=== PATIENT | female | born 1990 | race African-American/Black ===

== ENCOUNTER 2018-10-28 16:05 | Emergency (ER) | payer OTHER, SELFPAY ==
--- NOTE | 2018-10-28 16:44 | EDPHYS ---
Physician Documentation [facility] Name: Isis Mendez Age: 28 yrs Sex: Female : 1990 Arrival Date: 10/28/2018 Time: 16:08 Bed 19 Private MD: ED Physician Duc Abdul HPI: 10/28 16:36 This 28 yrs old Black Female presents to ER via Ambulatory with complaints of Foreign pm1 Body In Left Ear. 16:36 The patient presents with foreign body in left ear. The complaints affect the left ear. pm1 Onset: The symptoms/episode began/occurred 1 month(s) ago. Modifying factors: The symptoms are alleviated by nothing, the symptoms are aggravated by nothing. Associated signs and symptoms: The patient has no apparent associated signs or symptoms, Pertinent negatives: fever, tinnitus, vertigo. Severity of symptoms: in the emergency department the symptoms are worse. The patient has not experienced similar symptoms in the past. The patient has not recently seen a physician. Patient with backing of earring in her ear canal. Has been attempting to remove with tweezers by her boyfriend and afraid that hey just pushed it in deeper. 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 - Social history:: Smoking status: Patient/guardian denies using tobacco. - Ebola Screening: : No symptoms or risks identified at this time. ROS: 16:36 Constitutional: Negative for fever, chills, and weight loss, Eyes: Negative for injury, pm1 pain, redness, and discharge. 16:36 Neck: Negative for injury, pain, and swelling, Cardiovascular: Negative for chest pain, palpitations, and edema, Respiratory: Negative for shortness of breath, cough, wheezing, and pleuritic chest pain, Abdomen/GI: Negative for abdominal pain, nausea, vomiting, diarrhea, and constipation, Back: Negative for injury and pain, : Negative for injury, bleeding, discharge, and swelling, MS/Extremity: Negative for injury and deformity, Skin: Negative for injury, rash, and discoloration, Neuro: Negative for headache, weakness, numbness, tingling, and seizure. 16:36 ENT: Positive for ear pain, foreign body sensation, Negative for drainage from ear(s), hearing loss. Exam: 16:36 Constitutional: This is a well developed, well nourished patient who is awake, alert, pm1 and in no acute distress. Head/Face: Normocephalic, atraumatic. Eyes: Pupils equal round and reactive to light, extra-ocular motions intact. Lids and lashes normal. Conjunctiva and sclera are non-icteric and not injected. Cornea within normal limits. Periorbital areas with no swelling, redness, or edema. Neck: Trachea midline, no thyromegaly or masses palpated, and no cervical lymphadenopathy. Supple, full range of motion without nuchal rigidity, or vertebral point tenderness. No Meningismus. Chest/axilla: Normal chest wall appearance and motion. Nontender with no deformity. No lesions are appreciated. 16:36 Cardiovascular: Regular rate and rhythm with a normal S1 and S2. No gallops, murmurs, or rubs. Normal PMI, no JVD. No pulse deficits. Respiratory: Lungs have equal breath sounds bilaterally, clear to auscultation and percussion. No rales, rhonchi or wheezes noted. No increased work of breathing, no retractions or nasal flaring. Skin: Warm, dry with normal turgor. Normal color with no rashes, no lesions, and no evidence of cellulitis. MS/ Extremity: Pulses equal, no cyanosis. Neurovascular intact. Full, normal range of motion. 16:36 ENT: External ear(s): are unremarkable, Ear canal(s): foreign body, a piece of jewelry, silver colored backing of ear in left ear canal, in the left external ear canal, TM's: unable to visualize left tympanic membrane due to foreign body, Examination of the other ear shows no obvious abnormality. 16:36 Neuro: Orientation: is normal, Motor: is normal, moves all fours. Vital Signs: 16:11 BP 117 / 88; Pulse 98; Resp 16; Temp 97.1; Pulse Ox 100% on R/A; Weight 59.87 kg; hb Height 5 ft. 6 in. (167.64 cm); Pain 9/10; 16:11 Body Mass Index 21.31 (59.87 kg, 167.64 cm) MDM: 16:16 Patient medically screened. pm1 16:36 Data reviewed: vital signs. Data interpreted: Pulse oximetry: on room air is 100 %. pm1 Interpretation: normal. Counseling: I had a detailed discussion with the patient and/or guardian regarding: the historical points, exam findings, and any diagnostic results supporting the discharge/admit diagnosis. 16:41 ED course: Attempted to use alligator forceps to remove foreign body. Patient will not pm1 stay still for attempt to remove. do not want to run the risk of causing injury and rupturing tympanic membrane. Referred patient to ENT for removal. Administered Medications: No medications were administered Disposition: 10/29 17:07 Co-signature as Attending Physician, Duc Abdul MD I agree with the assessment and plan of care. Disposition: 10/28/18 16:43 Discharged to Home. Impression: Foreign body in left ear. - Condition is Stable. - Discharge Instructions: Ear Foreign Body. - Medication Reconciliation Form, Thank You Letter, Antibiotic Education, Prescription Opioid Use form. - Follow up: Emergency Department; When: As needed; Reason: Worsening of condition. Follow up: Maggy Marquis MD; When: 2 - 3 days; Reason: Recheck today's complaints, Continuance of care, Re-evaluation by your physician. - Problem is new. - Symptoms have improved. Signatures: Ana Maria Valles RN RN Kang Powers NP CUSTOMER SUCCESS ASSOCIATE pm1 Destiney Beckford RN RN hb Starr, Gregory, MD MD Corrections: (The following items were deleted from the chart) 10/28 16:13 16:13 Splint - Finger ordered. pm1 pm1 17:23 16:43 10/28/2018 16:43 Discharged to Home. Impression: Foreign body in left ear. aj Condition is Stable. Forms are Medication Reconciliation Form, Thank You Letter, Antibiotic Education, Prescription Opioid Use. Follow up: Emergency Department; When: As needed; Reason: Worsening of condition. Follow up: Maggy Marquis; When: 2 - 3 days; Reason: Recheck today's complaints, Continuance of care, Re-evaluation by your physician. Problem is new. Symptoms have improved. pm1
--- NOTE | 2018-10-28 16:44 | ER ---
Nurse's Notes [facility] Name: Isis Mendez Age: 28 yrs Sex: Female : 1990 Arrival Date: 10/28/2018 Time: 16:08 Bed 19 Private MD: Diagnosis: Foreign body in left ear Presentation: 10/28 16:10 Presenting complaint: Back of earring stuck in left ear canal x 1 month. Transition of care: patient was not received from another setting of care. Onset of symptoms is unknown. Risk Assessment: Do you want to hurt yourself or someone else? Patient reports no desire to harm self or others. Initial Sepsis Screen: Does the patient meet any 2 criteria? No. Patient's initial sepsis screen is negative. Does the patient have a suspected source of infection? No. Patient's initial sepsis screen is negative. Care prior to arrival: None. 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 - Social history:: Smoking status: Patient/guardian denies using tobacco. - Ebola Screening: : No symptoms or risks identified at this time. Screenin:12 Abuse screen: Denies threats or abuse. Denies injuries from another. Nutritional hb screening: No deficits noted. Tuberculosis screening: No symptoms or risk factors identified. Fall Risk None identified. Assessment: 17:21 General: Appears in no apparent distress. uncomfortable, Behavior is calm, cooperative, aj appropriate for age. Pain: Complains of pain in left ear. Neuro: Level of Consciousness is awake, alert, obeys commands, Oriented to person, place, time, situation. Respiratory: Airway is patent Respiratory effort is even, unlabored, Respiratory pattern is regular, symmetrical. EENT: Reports pain in left ear. Derm: Skin is intact, is healthy with good turgor, Skin is pink, warm \T\ dry. normal. Vital Signs: 16:11 BP 117 / 88; Pulse 98; Resp 16; Temp 97.1; Pulse Ox 100% on R/A; Weight 59.87 kg; hb Height 5 ft. 6 in. (167.64 cm); Pain 9/10; 16:11 Body Mass Index 21.31 (59.87 kg, 167.64 cm) hb ED Course: 16:08 Patient arrived in ED. mr 16:11 Triage completed. hb 16:11 Arm band placed on right wrist. hb 16:12 Kang Powers NP is PHCP. pm1 16:12 Duc Abdul MD is Attending Physician. pm1 16:43 Maggy Marquis MD is Referral Physician. pm1 17:21 Ana Maria Valles, RN is Primary Nurse. aj 17:21 Patient has correct armband on for positive identification. aj 17:21 No provider procedures requiring assistance completed. Patient did not have IV access aj during this emergency room visit. Administered Medications: No medications were administered Outcome: 16:43 Discharge ordered by MD. pm1 17:21 Discharged to home ambulatory. aj 17:21 Condition: good 17:21 Discharge instructions given to patient, Instructed on discharge instructions, follow up and referral plans. medication usage, Demonstrated understanding of instructions, follow-up care, medications. 17:23 Patient left the ED. aj Signatures: Ana Maria Valles, RN Ramona Luna mr Kang Powers NP CURRICULUM AND ASSESSMENT COORDINATOR pm1 Destiney Beckford RN RN
== END 2018-10-28 17:23 | disposition home or self-care (01) ==
LOC: ER 16:05
DX: T16.2XXA Foreign body in left ear, initial encounter (principal); I10 Essential (primary) hypertension
CPT/HCPCS: 99281

== ENCOUNTER 2020-01-22 11:47 | Emergency (ER) | payer SELFPAY ==
--- NOTE | 2020-01-22 12:26 | EDPHYS ---
Physician Documentation [facility] Name: Isis Mendez Age: 29 yrs Sex: Female : 1990 Arrival Date: 01/22/2020 Time: 11:51 Bed 17 Private MD: ED Physician Tobin Azevedo HPI: 01/21 12:17 This 29 yrs old Black Female presents to ER via EMS with complaints of Chest Pain. jmm 12:17 The patient or guardian reports chest pain that is located primarily in the substernal [facility] area. The pain does not radiate. The chest pain is described as aching. Duration: The patient or guardian reports multiple episodes. Modifying factors: The symptoms are alleviated by nothing. the symptoms are aggravated by nothing. This is a 29 year old female with a history of htn that presents to the ED with complaints of chest pain beginning approx 10 days ago. Patient states she was tested for COVID - 19 and advised to self quarantine until receiving results. . 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 - Social history:: Smoking status: Patient reports the use of cigarette tobacco products, smokes one pack cigarettes per day. ROS: 12:17 Constitutional: Negative for fever, chills, and weight loss. jmm 12:17 Cardiovascular: Positive for chest pain. 12:17 Respiratory: Positive for cough. 12:17 All other systems are negative. Exam: 12:17 Constitutional: This is a well developed, well nourished patient who is awake, alert, jmm and in no acute distress. Head/Face: atraumatic. Eyes: EOMI, no conjunctival erythema appreciated ENT: Moist Mucus Membranes Neck: Trachea midline, Supple Chest/axilla: Normal chest wall appearance and motion. Cardiovascular: Regular rate and rhythm. No edema appreciated Respiratory: Normal respirations, no respiratory distress appreciated Abdomen/GI: Non distended, soft Back: Normal ROM Skin: General appearance color normal MS/ Extremity: Moves all extremities, no obvious deformities appreciated, no edema noted to the lower extremities Neuro: Awake and alert, normal gait Psych: Behavior is normal, Mood is normal, Patient is cooperative and pleasant Vital Signs: 11:41 BP 109 / 91; Pulse 83; Resp 16; Temp 98.2; Pulse Ox 100% ; Weight 60.78 kg; Height 5 rb1 ft. 6 in. (167.64 cm); Pain 8/10; 11:41 Body Mass Index 21.63 (60.78 kg, 167.64 cm) rb1 MDM: 11:53 Patient medically screened. [facility] 14:24 Refusal of service: The patient/guardian displays adequate decision making capability [facility] and despite a detailed discussion of alternatives, benefits, risks, and consequences refuses: all lab tests. 01/21 12:01 Order name: Cardiac monitoring; Complete Time: 12: [facility] 01/21 12: Order name: O2 Per Protocol; Complete Time: 12: [facility] 01/21 12:01 Order name: O2 Sat Monitoring; Complete Time: 12: [facility] Administered Medications: No medications were administered Disposition: 01/22 06:04 Co-signature as Attending Physician, Tobin Azevedo MD I agree with the assessment and [facility] plan of care. Disposition: 01/22/20 12:25 Patient has left against medical advice. - Patients states they are going to Home. - Condition is Stable. Signatures: Dispatcher [employer] Tobin Holguin MD MD cha Mickail, Joel, PA PA [facility] Lydia Blandon, RN RN rb1 Corrections: (The following items were deleted from the chart) 01/21 12: 12:01 IV Saline Lock ordered. [facility] rb1 12:01 Labs collected and sent ordered. [facility] rb1 : 12:01 EKG - Nurse/Tech ordered. [facility] rb1
--- NOTE | 2020-01-22 12:26 | ER ---
Nurse's Notes [facility] Name: Isis Mendez Age: 29 yrs Sex: Female : 1990 Arrival Date: 01/22/2020 Time: 11:51 Bed 17 Private MD: Diagnosis: Presentation: 01/21 11:41 Chief complaint: EMS states: Pt. was stopped by [facility] for a traffic violation rb1 and she told them that she had chest pain and COVID. Pt. is A \\T\\ O x 4, vital signs are stable and the 12-Lead shows SR. Family reported to EMS that the pt. is not positive for COVID. 11:41 Coronavirus screen: Pt. reports that she was tested for COVID and was positive, but rb1 family reported that she was not positive per EMS report. Ebola Screen: Patient denies travel to an Ebola-affected area in the 21 days before illness onset. Initial Sepsis Screen: Does the patient meet any 2 criteria? No. Patient's initial sepsis screen is negative. Does the patient have a suspected source of infection? No. Patient's initial sepsis screen is negative. Risk Assessment: Do you want to hurt yourself or someone else? Patient reports no desire to harm self or others. Onset of symptoms was January 22, 2020. 11:41 Method Of Arrival: EMS: [facility] rb1 11:41 Acuity: LUCAS 3 rb1 Triage Assessment: 11:41 General: Appears in no apparent distress. comfortable, Behavior is calm, cooperative, rb1 Denies fever. Pain: Complains of pain in mid-sternal area Pain currently is 8 out of 10 on a pain scale. Neuro: Level of Consciousness is awake, alert, obeys commands, Oriented to person, place, time, situation. Cardiovascular: Capillary refill < 3 seconds. Respiratory: Reports shortness of breath Airway is patent Respiratory effort is even, unlabored, Respiratory pattern is regular, symmetrical, Denies cough. GI: No signs and/or symptoms were reported involving the gastrointestinal system. : No signs and/or symptoms were reported regarding the genitourinary system. Derm: Skin is dry, Skin is normal, Skin temperature is warm. 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 - Social history:: Smoking status: Patient reports the use of cigarette tobacco products, smokes one pack cigarettes per day. Screenin:41 Abuse screen: Denies threats or abuse. Nutritional screening: No deficits noted. rb1 Tuberculosis screening: No symptoms or risk factors identified. Fall Risk None identified. Assessment: 11:41 General: See triage assessment. rb1 12:00 Reassessment: Pt became upset because Jayden ROSARIO was sitting at the bedside. She rb1 was raising her voice and swearing at the officer, the officer remained calm and explained why he had to be there, but the pt. continued to tell the officer that she didn't want him at the bedside. 12:15 Reassessment: Pt. is refusing care and does not want to see the doctor. Pt stated, "I rb1 don't want to be seen, I'm ready to go to the long term." Provider notified. Received verbal order to have the pt. fill out an AMA form. Vital Signs: 11:41 BP 109 / 91; Pulse 83; Resp 16; Temp 98.2; Pulse Ox 100% ; Weight 60.78 kg; Height 5 rb1 ft. 6 in. (167.64 cm); Pain 8/10; 11:41 Body Mass Index 21.63 (60.78 kg, 167.64 cm) rb1 ED Course: 11:41 Arm band placed on right wrist. rb1 11:41 Patient has correct armband on for positive identification. Bed in low position. Call rb1 light in reach. Side rails up X 1. classroom monitor on. Pulse ox on. NIBP on. Warm blanket given. 11:41 Patient maintains SpO2 saturation greater than 95% on room air. rb1 11:51 Patient arrived in ED. rb1 11:53 Ovidio Aldana PA is PHCP. [facility] 11:53 Tobin Azevedo MD is Attending Physician. [facility] 11:58 Triage completed. rb1 12:20 Lydia Blandon, RN is Primary Nurse. rb1 12:25 No provider procedures requiring assistance completed. Patient did not have IV access rb1 during this emergency room visit. Administered Medications: No medications were administered Outcome: 12:25 Patient left the ED. rb1 12: AMA AMA form signed rb1 : Condition: stable Signatures: Ovidio Aldana PA PA jmm Barber, Rebecca RN RN rb1 Corrections: (The following items were deleted from the chart) 12: 12:15 Reassessment: Pt. is refusing care and does not want to see the doctor. Provider rb1 notified. Received verbal order to have the pt. fill out an AMA form. rb1
== END 2020-01-22 12:25 | disposition left against medical advice (07) ==
LOC: ER 11:47
DX: R05 Cough (principal); I10 Essential (primary) hypertension; F17.210 Nicotine dependence, cigarettes, uncomplicated
CPT/HCPCS: 99284

== ENCOUNTER 2020-01-22 17:24 | Emergency (ER) | payer SELFPAY ==
--- NOTE | 2020-01-22 17:56 | EDPHYS ---
Physician Documentation [facility] Name: Isis Mendez Age: 29 yrs Sex: Female : 1990 Arrival Date: 01/22/2020 Time: 17:30 Bed 14 Private MD: ED Physician Tobin Azevedo HPI: 01/21 17:40 This 29 yrs old Black Female presents to ER via EMS with complaints of Suicidal cp Ideation. 17:40 The patient presents to the emergency department with a history of a suicide gesture, cp took jump suit and placed around neck. Patient denies suicidal or homicidal ideations when questioned and reports she wants to go home to and 4 children. 17:40 Past psychiatric history: Prior diagnosis: no previous psychiatric diagnosis known, cp Psychiatric medications include: none. 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 - Social history:: Smoking status: Patient reports the use of cigarette tobacco products, smokes one pack cigarettes per day. ROS: 17:46 Constitutional: Negative for body aches, fever, poor PO intake. cp 17:46 Cardiovascular: Negative for chest pain. 17:46 Respiratory: Negative for cough, shortness of breath, wheezing. 17:46 Abdomen/GI: Negative for abdominal pain, nausea, vomiting, and diarrhea. 17:46 Neuro: Negative for altered mental status, headache, weakness. 17:46 Psych: Negative for auditory hallucinations, visual hallucinations, homicidal ideation, suicidal ideation. 17:46 All other systems are negative. Exam: 17:47 Head/Face: Normocephalic, atraumatic. cp 17:47 Constitutional: The patient appears in no acute distress, alert, awake, non-toxic, well developed, well nourished. 17:47 Eyes: Periorbital structures: appear normal, Conjunctiva: normal, no exudate, no injection, Lids and lashes: appear normal, bilaterally. 17:47 ENT: External ear(s): are unremarkable, Nose: is normal, Posterior pharynx: Airway: no evidence of obstruction, patent. 17:47 Chest/axilla: Inspection: normal, Palpation: is normal, no crepitus, no tenderness. 17:47 Cardiovascular: Rate: normal, Rhythm: regular. 17:47 Respiratory: the patient does not display signs of respiratory distress, Respirations: normal, no use of accessory muscles, no retractions, labored breathing, is not present, Breath sounds: are clear throughout, no decreased breath sounds, no stridor, no wheezing. 17:47 Abdomen/GI: Exam negative for discomfort, distension, guarding, Inspection: abdomen appears normal. 17:47 Neuro: Orientation: to person, place \T\ time. Mentation: is normal, Motor: moves all fours, strength is normal. 17:47 Psych: Behavior/mood is cooperative, Affect is calm, Patient has no thoughts/intents to harm self or others. Judgement / Insight is normal. Delusions/hallucinations are not present. Vital Signs: 17:34 BP 122 / 87; Pulse 79; Resp 18 S; Temp 97(TE); Pulse Ox 100% on R/A; Weight 60.78 kg ca1 (R); Height 5 ft. 6 in. (167.64 cm) (R); Pain 0/10; 17:34 Body Mass Index 21.63 (60.78 kg, 167.64 cm) ca1 MDM: 17:36 Patient medically screened. [facility] 17:55 Data reviewed: vital signs, nurses notes, I have discussed the patient's cp presentation/case with the attending Emergency Department Physician; and as a result, I will discharge patient. 17:55 Differential diagnosis: drug withdrawal. acute psychotic break, depression, psychosis cp secondary to non-compliance. Counseling: I had a detailed discussion with the patient and/or guardian regarding: the historical points, exam findings, and any diagnostic results supporting the discharge/admit diagnosis, to return to the emergency department if symptoms worsen or persist or if there are any questions or concerns that arise at home. Administered Medications: No medications were administered Disposition: 18:00 Chart complete. cp 01/22 06:07 Co-signature as Attending Physician, Tobin Azevedo MD I agree with the assessment and [facility] plan of care. Disposition: 01/22/20 17:55 Discharged to Home. Impression: Encounter for examination and observation for other specified reasons - law enforcement. - Condition is Stable. - Medication Reconciliation Form, Thank You Letter, Antibiotic Education, Prescription Opioid Use form. - Follow up: Private Physician; When: As needed; Reason: Worsening of condition. - Problem is new. - Symptoms have improved. Signatures: Tobin Azevedo MD MD cha Page, Corey, PA PA cp Ted, Radha, RN RN ca1 Corrections: (The following items were deleted from the chart) 01/21 18:07 17:55 01/22/2020 17:55 Discharged to Home. Impression: Encounter for examination and ca1 observation for other specified reasons - law enforcement. Condition is Stable. Forms are Medication Reconciliation Form, Thank You Letter, Antibiotic Education, Prescription Opioid Use. Follow up: Private Physician; When: As needed; Reason: Worsening of condition. Problem is new. Symptoms have improved. cp
--- NOTE | 2020-01-22 17:56 | ER ---
Nurse's Notes [facility] Name: Isis Mendez Age: 29 yrs Sex: Female : 1990 Arrival Date: 01/22/2020 Time: 17:30 Bed 14 Private MD: Diagnosis: Encounter for examination and observation for other specified reasons-law enforcement Presentation: 01/21 17:34 Chief complaint: EMS states: Attempted to strangle herself with her jumpsuit. Denies ca1 trying to hurt herself or others. No c/o of pains. VS WNL. Pt states, " I was just trying to get their attention. They took it seriously. I don't want to kill or hurt myself or others". Coronavirus screen: Client denies travel out of the [place] in the last 14 days. At this time, the client does not indicate any symptoms associated with coronavirus-19. Ebola Screen: Patient negative for fever greater than or equal to 101.5 degrees Fahrenheit, and additional compatible Ebola Virus Disease symptoms Patient denies exposure to infectious person. Patient denies travel to an Ebola-affected area in the 21 days before illness onset. No symptoms or risks identified at this time. Initial Sepsis Screen: Does the patient meet any 2 criteria? No. Patient's initial sepsis screen is negative. Does the patient have a suspected source of infection? No. Patient's initial sepsis screen is negative. Risk Assessment: Do you want to hurt yourself or someone else? Patient reports no desire to harm self or others. Onset of symptoms was January 22, 2020. 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 - Social history:: Smoking status: Patient reports the use of cigarette tobacco products, smokes one pack cigarettes per day. Screenin:40 Abuse screen: Denies threats or abuse. Denies injuries from another. Nutritional ca1 screening: No deficits noted. Tuberculosis screening: No symptoms or risk factors identified. Fall Risk IV access (20 points). Assessment: 17:40 General: Appears in no apparent distress. comfortable, Behavior is calm, cooperative, ca1 appropriate for age. Pain: Denies pain. Neuro: Level of Consciousness is awake, alert, obeys commands, Oriented to person, place, time, situation. Cardiovascular: Heart tones S1 S2 present Capillary refill < 3 seconds Patient's skin is warm and dry. Respiratory: Airway is patent Respiratory effort is even, unlabored, Respiratory pattern is regular, symmetrical, Breath sounds are clear bilaterally. GI: Abdomen is flat, non-distended, Bowel sounds present X 4 quads. Abd is soft and non tender X 4 quads. : No signs and/or symptoms were reported regarding the genitourinary system. EENT: No signs and/or symptoms were reported regarding the EENT system. Derm: Skin is intact, is healthy with good turgor, Skin is pink, warm \\T\\ dry. Musculoskeletal: Circulation, motion, and sensation intact. Capillary refill < 3 seconds. 17:50 Reassessment: pt states that she was only trying to get out of senior living and that's why she iw was acting out. Psych: 17:43 Subjective: Patient's mood is irritable, Delusions are denied, Hallucinations are ca1 denied Having thoughts of denied thoughts of suicide and homicide. Objective: Patient is defensive, Speech is normal, Affect is appropriate. Interventions: Removed personal items and placed in bag. Patient placed in hospital gown. Searched person for dangerous items. Urine collected and sent for urine drug test. Belonging list filled out. Suicide Risk Assessment: Sad Person Scale: Sex of patient: Female: Score 0 points. Age of patient: Score 1 point if patient 15-34. Depression: Score 0 point if signs of depression are not present. Previous Attempt: Score 0 point if patient has not previously attempted suicide. Substance Abuse: Score 0 point if patient does not abuse alcohol or drugs. Rational Thinking: Score 0 point if patient has rational thinking. Social Support: Score 0 if social support is present/available. Organized Plan: Score 0 if patient did not have an organized plan in place. Relationship: Score 1 point if patient is , , , or for a single male Chronic Sickness: Score 0 point if patient does not have a chronic illness, debilitating, or severe disorder. TOTAL POINTS: If total points are 0-2, proposed clinical action is to send home with follow-up. Safety Checks: Personal items have been removed. Pt has been placed in a hallway bed/chair. No visitors are present at this time. Pt denies substance abuse. 18:07 Commitment: none. ca1 Vital Signs: 17:34 BP 122 / 87; Pulse 79; Resp 18 S; Temp 97(TE); Pulse Ox 100% on R/A; Weight 60.78 kg ca1 (R); Height 5 ft. 6 in. (167.64 cm) (R); Pain 0/10; 17:34 Body Mass Index 21.63 (60.78 kg, 167.64 cm) ca1 ED Course: 17:30 Patient arrived in ED. iw 17:32 Tobin Coto PA is PHCP. cp 17:32 Tobin Azevedo MD is Attending Physician. cp 17:34 Radha Jean RN is Primary Nurse. ca1 17:39 Triage completed. ca1 17:39 Arm band placed on right wrist. ca1 17:40 Patient has correct armband on for positive identification. Placed in gown. Bed in low ca1 position. Security at bedside. sitter at bedside. manager monitoring on. Pulse ox on. NIBP on. Warm blanket given. 18:07 No provider procedures requiring assistance completed. Patient did not have IV access ca1 during this emergency room visit. Administered Medications: No medications were administered Outcome: 17:55 Discharge ordered by . cp 18:07 Discharged to home ambulatory. ca1 18:07 Condition: stable 18:07 Discharge instructions given to patient, Instructed on discharge instructions, follow up and referral plans. Demonstrated understanding of instructions, follow-up care. 18:07 Patient left the ED. ca1 Signatures: India Jarrell, RN RN Tobin Coto PA PA cp Acob, Cheryl, RN RN ca1
[2020-01-22 18:14] VITALS: BP 122/87; TEMP 97; O2SAT 100
== END 2020-01-22 18:07 | disposition home or self-care (01) ==
LOC: ER 17:24
DX: Z04.89 Encounter for examination and observation for other specified reasons (principal)
CPT/HCPCS: 99285

== ENCOUNTER → 2023-06-16 | Emergency (ER) | payer SELFPAY ==
[~2023-06-16] MED LIST: FLUORESCEIN SODIUM 1 MG/WRAP ONE; KETOROLAC 30 MG/ML INJ ONE; TETRACAINE HCL 0.5% 4ML OPTH ONE
--- OUTSIDE RECORDS SUMMARY | 2023-06-16 09:48 | XMS REPORT | Continuity of Care Document ---
Author Name Unknown Address [address] [place] [address] thconnect Address [address] [place] [address] [address] [place] [address] Care Team Providers Care Sorority Supervisor Name Role Phone Unavailable Unavailable Unavailable
--- NOTE | 2023-06-16 10:26 | ER ---
Nurse's Notes [facility] Name: Isis Mendez Age: 33 yrs Sex: Female : 1990 Arrival Date: 06/16/2023 Time: 09:46 Bed 19 Private MD: Diagnosis: Injury of conjunctiva and corneal abrasion without foreign body, left eye Presentation: 06/16 09:55 Chief complaint: Patient states: she was doing laundry yesterday, when she "popped" her ap3 clothes and hit her left eye. patient reports pain started this morning to the left eye. Coronavirus screen: At this time, the client does not indicate any symptoms associated with coronavirus-19. Ebola Screen: No symptoms or risks identified at this time. Initial Sepsis Screen: Does the patient meet any 2 criteria? No. Patient's initial sepsis screen is negative. Does the patient have a suspected source of infection? No. Patient's initial sepsis screen is negative. Risk Assessment: Do you want to hurt yourself or someone else? Patient reports no desire to harm self or others. Onset of symptoms was June 15, 2023. 09:55 Method Of Arrival: Ambulatory ap3 09:55 Acuity: LUCAS 3 ap3 Triage Assessment: 09:57 General: Appears uncomfortable, Behavior is calm, cooperative, appropriate for age. ap3 Pain: Complains of pain in left eye Pain began gradually. Neuro: Level of Consciousness is awake, alert, obeys commands, Oriented to person, place, time, situation, Appropriate for age. Cardiovascular: Patient's skin is warm and dry. Respiratory: Airway is patent Respiratory effort is even, unlabored, Respiratory pattern is regular, symmetrical. Historical: - Allergies: 09:57 No Known Allergies; ap3 - Home Meds: 09:57 None [Active]; ap3 - PMHx: 09:57 Hypertension; ap3 - Immunization history:: Client reports having NOT received the Covid vaccine. Flu vaccine is not up to date. - Social history:: Smoking status: Reported history of juuling and/or vaping. Patient uses street drugs, . Screenin:58 Abuse screen: Denies threats or abuse. Nutritional screening: No deficits noted. ap3 Tuberculosis screening: No symptoms or risk factors identified. 10:16 [facility] ED Fall Risk Assessment (Adult) History of falling in the last 3 months, ph including since admission No falls in past 3 months (0 pts) Score/Fall Risk Level 0 - 2 = Low Risk Oriented to surroundings, Maintained a safe environment, Hourly rounding (assess needs \\T\\ fall precautionary measures) done, Used ambulatory aids as needed (educated on \\T\\ assisted with). Assessment: 10:15 General: Appears in no apparent distress. Behavior is calm, cooperative. Pain: ph Complains of pain in left eye. Neuro: Level of Consciousness is awake, alert, obeys commands, Oriented to person, place, time, situation. Derm: Skin is pink, warm \\T\\ dry. Vital Signs: 09:55 BP 130 / 99; Pulse 100; Resp 18; Temp 97.7; Pulse Ox 100% ; Weight 63.5 kg; Height 5 ap3 ft. 6 in. ; 09:55 Body Mass Index 22.60 (63.50 kg, 167.64 cm) ap3 ED Course: 09:47 Patient arrived in ED. mg5 09:50 Indira Gibson, KAYDEN is Primary Nurse. ph 09:53 Abiodun Khan MD is Attending Physician. rt 09:57 Triage completed. ap3 09:58 Arm band placed on left wrist. ap3 09:58 Patient has correct armband on for positive identification. Bed in low position. Call ap3 light in reach. Side rails up X2. Pulse ox on. NIBP on. 10:16 Assist provider with eye exam of left eye. using fluorescein stain, Performed by Abiodun Khan MD Patient tolerated well. Patient did not have IV access during this emergency room visit. 10:24 Adiel Nesbitt MD is Referral Physician. rt Administered Medications: 10:15 Drug: Ketorolac IM 15 mg IM once Route: IM; Site: right deltoid; ph 10:18 Drug: Tetracaine Ophthalmic Drops 0.5 % 1 drops Ophthalmic once Route: Ophthalmic; ph Site: left eye; Medication: 10:16 VIS not applicable for this client. ph Outcome: 10:25 Discharge ordered by . rt 10:48 Discharged to home ambulatory, ph 10:48 Condition: good 10:48 Discharge instructions given to patient, Instructed on discharge instructions, follow up and referral plans. medication usage, Demonstrated understanding of instructions, follow-up care, medications, Prescriptions given X 1, 10:48 Patient left the ED. ph Signatures: Indira Gibson RN RN ph Ana Maria Roper RN RN ap3 Abiodun Khan MD MD rt Mia Oconnor mg5
--- NOTE | 2023-06-16 10:26 | EDPHYS ---
Physician Documentation [facility] Name: Isis Mendez Age: 33 yrs Sex: Female : 1990 Arrival Date: 06/16/2023 Time: 09:46 Bed 19 Private MD: ED Physician Abiodun Khan HPI: 06/16 10:13 This 33 yrs old Black Female presents to ER via Ambulatory with complaints of Eye rt Problem - BURING/CLOSED SHUT. 10:13 Patient presents to the ED with pain to the left eye. She states that yesterday, she rt was doing laundry, when she popped the laundry, hitting her eye with her fingernail. She reports of pain, states that he has difficulty opening the eye. Denies other acute complaints, symptoms are moderate severity, aching nature, nonradiating, no other aggravating or elevating factors.. Historical: - Allergies: 09:57 No Known Allergies; ap3 - Home Meds: 09:57 None [Active]; ap3 - PMHx: 09:57 Hypertension; ap3 - Immunization history:: Client reports having NOT received the Covid vaccine. Flu vaccine is not up to date. - Social history:: Smoking status: Reported history of juuling and/or vaping. Patient uses street drugs, . ROS: 10:13 Constitutional: Negative for fever, chills, and weight loss, Cardiovascular: Negative rt for chest pain, palpitations, and edema, Respiratory: Negative for shortness of breath, cough, wheezing, and pleuritic chest pain, Abdomen/GI: Negative for abdominal pain, nausea, vomiting, diarrhea, and constipation, Skin: Negative for injury, rash, and discoloration, Neuro: Negative for headache, weakness, numbness, tingling, and seizure, 10:13 Eyes: Positive for pain, redness, Exam: 10:27 Constitutional: This is a well developed, well nourished patient who is awake, alert, rt and in no acute distress. Head/Face: Normocephalic, atraumatic. Chest/axilla: Normal chest wall appearance and motion. Nontender with no deformity. No lesions are appreciated. Cardiovascular: Regular rate and rhythm with a normal S1 and S2. No gallops, murmurs, or rubs. Normal PMI, no JVD. No pulse deficits. Respiratory: Lungs have equal breath sounds bilaterally, clear to auscultation and percussion. No rales, rhonchi or wheezes noted. No increased work of breathing, no retractions or nasal flaring. Skin: Warm, dry with normal turgor. Normal color with no rashes, no lesions, and no evidence of cellulitis. MS/ Extremity: Pulses equal, no cyanosis. Neurovascular intact. Full, normal range of motion. Neuro: Awake and alert, GCS 15, oriented to person, place, time, and situation. Cranial nerves II-XII grossly intact. Motor strength 5/5 in all extremities. Sensory grossly intact. Cerebellar exam normal. Normal gait. 10:27 Eyes: Conjunctival injection of left eye, pupils equally round reactive to light, extraocular muscles are intact, moderate area of fluorescein uptake consistent with large, abrasion, Shayan sign negative. Vital Signs: 09:55 BP 130 / 99; Pulse 100; Resp 18; Temp 97.7; Pulse Ox 100% ; Weight 63.5 kg; Height 5 ap3 ft. 6 in. ; 09:55 Body Mass Index 22.60 (63.50 kg, 167.64 cm) ap3 MDM: 09:55 Patient medically screened. rt 10:27 Differential diagnosis: Corneal abrasion of Corneal ulcer of Foreign body in Open rt globe. Data reviewed: vital signs, nurses notes. Counseling: I had a detailed discussion with the patient and/or guardian regarding the historical points, exam findings, and any diagnostic results supporting the discharge/admit diagnosis, the need for outpatient follow up, to return to the emergency department if symptoms worsen or persist or if there are any questions or concerns that arise at home. Response to treatment: the patient's symptoms have markedly improved after treatment. ED course: Symptoms are significant improving following tetracaine administration. Shayan sign is negative, I see no other signs of an open globe. Will start patient on erythromycin ointment, patient struck to follow-up with membership secretary.. 06/16 09:59 Order name: Eye Tray; Complete Time: 10:15 rt 06/16 09:59 Order name: Fluoresene Opth strip; Complete Time: 10:15 rt Administered Medications: 10:15 Drug: Ketorolac IM 15 mg IM once Route: IM; Site: right deltoid; ph 10:18 Drug: Tetracaine Ophthalmic Drops 0.5 % 1 drops Ophthalmic once Route: Ophthalmic; ph Site: left eye; Disposition Summary: 06/16/23 10:25 Discharge Ordered Notes: Location: Home rt Problem: new rt Symptoms: have improved rt Condition: Stable rt Diagnosis - Injury of conjunctiva and corneal abrasion without foreign body, left eye rt Followup: rt - With: Adiel Nesbitt MD - When: 5 - 6 days - Reason: Discharge Instructions: - Discharge Summary Sheet rt - Corneal Abrasion rt Forms: - Medication Reconciliation Form rt - Thank You Letter rt - Antibiotic Education rt - Prescription Opioid Use rt - Patient Portal Instructions rt - Leadership Thank You Letter rt Prescriptions: - erythromycin 5 mg/gram (0.5 %) Ophthalmic ointment - instill 0.5 inch OPHTHALMIC route every 8 hours Please dispense QS for 7 days; rt 1 Each; Refills: 0, Product Selection Permitted Signatures: Indira Gibson RN RN ph Ana Maria Roper RN RN ap3 Abiodun Khan MD MD rt
[2023-06-16 11:15] VITALS: BP 130/99; TEMP 97.7; O2SAT 100
== END ==
LOC: ER 09:46
DX: S05.02XA Injury of conjunctiva and corneal abrasion without foreign body, left eye, initial encounter (principal)

== ENCOUNTER → 2023-06-17 | Emergency (ER) | payer OTHER ==
[~2023-06-17] MED LIST changes: +HYDROCODONE/APAP 10/325 TAB ONE; -KETOROLAC 30 MG/ML INJ ONE
--- OUTSIDE RECORDS SUMMARY | 2023-06-17 16:23 | XMS REPORT | Continuity of Care Document ---
Author Name Unknown Address [address] [place] [address] thconnect Address [address] [place] [address] Care Team Providers Care Assistant Unit Forester Name Role Phone Unavailable Unavailable Unavailable
--- NOTE | 2023-06-17 18:02 | ER ---
Nurse's Notes [facility] Name: Isis Mendez Age: 33 yrs Sex: Female : 1990 Arrival Date: 06/17/2023 Time: 16:20 Bed External Waiting Private MD: Diagnosis: Injury of conjunctiva and corneal abrasion without foreign body, left eye Presentation: 06/17 16:37 Chief complaint: Patient states: Pain to left eye, swollen shut. Pt reports coming to ld1 ER yesterday for the same pain in left eye. Coronavirus screen: At this time, the client does not indicate any symptoms associated with coronavirus-19. Ebola Screen: No symptoms or risks identified at this time. Mechanism of Injury: No Mechanism of Injury. The patient denies any loss of vision. Initial Sepsis Screen: Does the patient meet any 2 criteria? No. Patient's initial sepsis screen is negative. Does the patient have a suspected source of infection? No. Patient's initial sepsis screen is negative. Risk Assessment: Do you want to hurt yourself or someone else? Patient reports no desire to harm self or others. Onset of symptoms was June 17, 2023. 16:37 Method Of Arrival: Ambulatory ld1 16:37 Acuity: LUCAS 4 ld1 Triage Assessment: 16:39 General: Appears in no apparent distress. uncomfortable, Behavior is cooperative, ld1 appropriate for age, anxious. Pain: Complains of pain in left eye Pain does not radiate. Pain currently is 10 out of 10 on a pain scale. Quality of pain is described as throbbing, Pain began suddenly, Is continuous. EENT: Eyes are tearing on outer aspect of conjuctiva of left eye, iris of left eye and inner aspect of conjunctiva of left eye. Neuro: Level of Consciousness is awake, alert, obeys commands, Oriented to person, place, time, situation. Cardiovascular: Capillary refill < 3 seconds Patient's skin is warm and dry. Respiratory: Airway is patent Respiratory effort is even, unlabored. GI: Abdomen is flat, non-distended. : No signs and/or symptoms were reported regarding the genitourinary system. Derm: No signs and/or symptoms reported regarding the dermatologic system. Musculoskeletal: No signs and/or symptoms reported regarding the musculoskeletal system. Historical: - Allergies: 16:39 No Known Allergies; ld1 - PMHx: 16:39 Hypertension; ld1 - PSHx: 16:39 None; ld1 - Immunization history:: Adult Immunizations up to date. - Social history:: Smoking status: Patient denies any tobacco usage or history of. Patient/guardian denies using alcohol. - Family history:: not pertinent. Screenin:18 [facility] ED Fall Risk Assessment (Adult) History of falling in the last 3 months, bp including since admission No falls in past 3 months (0 pts). Abuse screen: Denies threats or abuse. Denies injuries from another. Nutritional screening: No deficits noted. Tuberculosis screening: No symptoms or risk factors identified. Assessment: 18:18 Reassessment: Patient appears in no apparent distress at this time. Patient is alert, bp oriented x 3, equal unlabored respirations, skin warm/dry/pink. Vital Signs: 16:37 BP 139 / 99; Pulse 88; Resp 18; Temp 98.3(TE); Pulse Ox 100% on R/A; Weight 63.5 kg; ld1 Height 5 ft. 6 in. ; Pain 10/10; 18:25 BP 131 / 90; Pulse 71; Resp 18; Temp 97.8; Pulse Ox 100% ; bp 16:37 Body Mass Index 22.60 (63.50 kg, 167.64 cm) ld1 16:37 Pain Scale: Adult ld1 ED Course: 16:22 Patient arrived in ED. ld1 16:32 Abiodun Khan MD is Attending Physician. rt 16:34 Fransisco Fink RN is Primary Nurse. bp 16:39 Triage completed. ld1 16:39 Arm band placed on right wrist. ld1 17:45 Provided Education on: Blood Transfusion. bp 18:01 Adiel Nesbitt MD is Referral Physician. rt 18:18 Patient has correct armband on for positive identification. bp 18:18 Assist provider with eye exam of left eye. using fluorescein stain, Performed by Abiodun Khan MD Patient tolerated well. Patient did not have IV access during this emergency room visit. 06/18 15:21 Primary Nurse role handed off by Fransisco Fink RN iw 15:21 Attending Physician role handed off by Abiodun Khan MD iw 16:26 Tobin Azevedo MD is Attending Physician. gabrielle Administered Medications: 06/17 17:07 Drug: Tetracaine Ophthalmic Drops 0.5 % 1 drops Ophthalmic once Route: Ophthalmic; bp Site: both eyes; 18:17 Drug: Tabor PO 10 mg-325 mg 1 tabs PO once Route: PO; bp 18:17 Follow up: Response: No adverse reaction bp Medication: 18:18 VIS not applicable for this client. bp Outcome: 18:01 Discharge ordered by MD. rt 18:18 Discharged to home ambulatory, bp 18:18 Condition: stable 18:18 Discharge instructions given to patient, Instructed on discharge instructions, follow up and referral plans. medication usage, Demonstrated understanding of instructions, follow-up care, medications, Prescriptions given X 2, 18:26 Patient left the ED. bp 02 17:15 Patient left the ED. iw Signatures: Tobin Azevedo MD MD cha Williams, Irene, RN KAYDEN iw Fransisco Fink RN RN bp Peg Heath RN RN ld1 Abiodun Khan MD MD rt
--- NOTE | 2023-06-17 18:02 | EDPHYS ---
Physician Documentation [facility] Name: Isis Mendez Age: 33 yrs Sex: Female : 1990 Arrival Date: 06/17/2023 Time: 16:20 Bed External Waiting Private MD: PERLA Physician Tobin Azevedo HPI: 06/17 18:48 This 33 yrs old Black Female presents to ER via Ambulatory with complaints of Eye Pain. rt 18:48 Patient was seen in the ED yesterday for corneal abrasion. Has continued eye pain rt despite topical antibiotic. She has an appointment with eye doctor tomorrow. States that the pain is worsened today. Denies other acute complaints, symptoms are moderate severity, no other aggravating elevating factors.. Historical: - Allergies: 16:39 No Known Allergies; ld1 - PMHx: 16:39 Hypertension; ld1 - PSHx: 16:39 None; ld1 - Immunization history:: Adult Immunizations up to date. - Social history:: Smoking status: Patient denies any tobacco usage or history of. Patient/guardian denies using alcohol. - Family history:: not pertinent. ROS: 18:48 Constitutional: Negative for fever, chills, and weight loss, Cardiovascular: Negative rt for chest pain, palpitations, and edema, Respiratory: Negative for shortness of breath, cough, wheezing, and pleuritic chest pain, Abdomen/GI: Negative for abdominal pain, nausea, vomiting, diarrhea, and constipation, Skin: Negative for injury, rash, and discoloration, Neuro: Negative for headache, weakness, numbness, tingling, and seizure, 18:48 Eyes: Positive for pain, photophobia, Exam: 18:48 Constitutional: This is a well developed, well nourished patient who is awake, alert, rt and in no acute distress. Head/Face: Normocephalic, atraumatic. Chest/axilla: Normal chest wall appearance and motion. Nontender with no deformity. No lesions are appreciated. Cardiovascular: Regular rate and rhythm with a normal S1 and S2. No gallops, murmurs, or rubs. Normal PMI, no JVD. No pulse deficits. Respiratory: Lungs have equal breath sounds bilaterally, clear to auscultation and percussion. No rales, rhonchi or wheezes noted. No increased work of breathing, no retractions or nasal flaring. Abdomen/GI: Soft, non-tender, with normal bowel sounds. No distension or tympany. No guarding or rebound. No evidence of tenderness throughout. Skin: Warm, dry with normal turgor. Normal color with no rashes, no lesions, and no evidence of cellulitis. MS/ Extremity: Pulses equal, no cyanosis. Neurovascular intact. Full, normal range of motion. Neuro: Awake and alert, GCS 15, oriented to person, place, time, and situation. Cranial nerves II-XII grossly intact. Motor strength 5/5 in all extremities. Sensory grossly intact. Cerebellar exam normal. Normal gait. 18:48 Eyes: Injected conjunctiva, pupil equally round and reactive to light, extraocular muscles are intact, fluorescein uptake reveals similar area of corneal abrasion, Shayan sign is negative. Vital Signs: 16:37 BP 139 / 99; Pulse 88; Resp 18; Temp 98.3(TE); Pulse Ox 100% on R/A; Weight 63.5 kg; ld1 Height 5 ft. 6 in. ; Pain 10/10; 18:25 BP 131 / 90; Pulse 71; Resp 18; Temp 97.8; Pulse Ox 100% ; bp 16:37 Body Mass Index 22.60 (63.50 kg, 167.64 cm) ld1 16:37 Pain Scale: Adult ld1 MDM: 16:39 Patient medically screened. rt 18:48 Differential diagnosis: Corneal abrasion, traumatic iritis, open globe. Data reviewed: rt vital signs, nurses notes. Consideration of Admission/Observation Patient already has an appointment tomorrow with ophthalmology. Shayan sign is negative, no evidence of an open globe. Will start him atropine in case there are some degree of traumatic iritis, will start diclofenac for better pain relief. Symptoms are improving with topical tetracaine.. I considered the following discharge prescriptions or medication management in the emergency department Medications were administered in the Emergency Department. See JUL. 06/17 16:42 Order name: Eye Tray; Complete Time: 17:04 rt 06/17 16:42 Order name: Fluoresene Opth strip; Complete Time: 17:00 rt Administered Medications: 17:07 Drug: Tetracaine Ophthalmic Drops 0.5 % 1 drops Ophthalmic once Route: Ophthalmic; bp Site: both eyes; 18:17 Drug: [place] PO 10 mg-325 mg 1 tabs PO once Route: PO; bp 18:17 Follow up: Response: No adverse reaction bp Disposition Summary: 06/17/23 18:01 Discharge Ordered Notes: Location: Home rt Problem: new rt Symptoms: have improved rt Condition: Stable rt Diagnosis - Injury of conjunctiva and corneal abrasion without foreign body, left eye rt Followup: rt - With: Adiel Nesbitt MD - When: Tomorrow - Reason: Discharge Instructions: - Discharge Summary Sheet rt Forms: - Medication Reconciliation Form rt - Thank You Letter rt - Antibiotic Education rt - Prescription Opioid Use rt - Patient Portal Instructions rt - Leadership Thank You Letter rt Prescriptions: - Homatropaire 5 % Ophthalmic drops - instill 2 drop OPHTHALMIC route 3 times per day for 3 days; 1 Applicator; rt Refills: 0, Product Selection Permitted - diclofenac sodium 0.1 % Ophthalmic drops - instill 1 drop OPHTHALMIC route every 6 hours for 3 days; 1 Applicator; rt Refills: 0, Product Selection Permitted Signatures: Fransisco Fink RN RN Peg Heath RN RN ld1 Abiodun Khan MD MD rt
[2023-06-17 19:06] VITALS: BP 131/90; TEMP 97.8; O2SAT 100
== END ==
LOC: ER 16:20
DX: S05.02XA Injury of conjunctiva and corneal abrasion without foreign body, left eye, initial encounter (principal)

== ENCOUNTER 2023-10-18 06:10 | Emergency (ER) | payer OTHER, SELFPAY ==
--- OUTSIDE RECORDS SUMMARY | 2023-10-18 06:14 | XMS REPORT | Continuity of Care Document ---
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
[2023-10-18] MEDS ORDERED: TETRACAINE HCL 0.5% 4ML OPTH ONE (06:19)
[2023-10-18] MEDS ORDERED: TOBRAMYCIN SULF 0.3% OPTH OINT ONE (06:19)
[2023-10-18] MEDS ORDERED: FLUORESCEIN SODIUM 1 MG/WRAP ONE (06:20)
[2023-10-18] MEDS ORDERED: CYCLOPENTOLATE 2% OPTH 2 ML ONE (06:27)
[2023-10-18] MEDS ORDERED: NEOMYC/POLYMYX/GRAMICID OPTH 10 ML BTL ONE (06:46)
--- NOTE | 2023-10-18 06:55 | EDPHYS ---
Physician Documentation [facility] Name: Isis Mendez Age: 33 yrs Sex: Female : 1990 Arrival Date: 10/18/2023 Time: 06:10 Bed 5 Private MD: ED Physician Tobin Azevedo HPI: 10/17 06:37 This 33 yrs old Black Female presents to ER via Ambulatory with complaints of Foreign gabrielle Body In Eye, Drainage From Eye, Redness of Eye. 06:37 The patient is experiencing burning, foreign body sensation, pain, The patient gabrielle sustained Unknown. Onset: The symptoms/episode began/occurred this morning. 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 - Infectious Disease History:: Denies. - Social history:: Smoking status: Patient denies any tobacco usage or history of. Patient/guardian denies using alcohol, street drugs. ROS: 06:38 Constitutional: Negative for fever, chills, and weight loss, ENT: Negative for injury, gabrielle pain, and discharge, Neck: Negative for injury, pain, and swelling, Cardiovascular: Negative for chest pain, palpitations, and edema, Respiratory: Negative for shortness of breath, cough, wheezing, and pleuritic chest pain, Abdomen/GI: Negative for abdominal pain, nausea, vomiting, diarrhea, and constipation, Back: Negative for injury and pain, : Negative for injury, bleeding, discharge, and swelling, MS/Extremity: Negative for injury and deformity, Skin: Negative for injury, rash, and discoloration, Neuro: Negative for headache, weakness, numbness, tingling, and seizure, Psych: Negative for depression, anxiety, suicide ideation, homicidal ideation, and hallucinations, Allergy/Immunology: Negative for hives, rash, and allergies, Endocrine: Negative for neck swelling, polydipsia, polyuria, polyphagia, and marked weight changes, 06:38 Eyes: Positive for discharge, pain, swelling, Exam: 06:38 Constitutional: This is a well developed, well nourished patient who is awake, alert, gabrielle and in no acute distress. ENT: Nares patent. No nasal discharge, no septal abnormalities noted. Tympanic membranes are normal and external auditory canals are clear. Oropharynx with no redness, swelling, or masses, exudates, or evidence of obstruction, uvula midline. Mucous membranes moist. Neck: Trachea midline, no thyromegaly or masses palpated, and no cervical lymphadenopathy. Supple, full range of motion without nuchal rigidity, or vertebral point tenderness. No Meningismus. Chest/axilla: Normal chest wall appearance and motion. Nontender with no deformity. No lesions are appreciated. Cardiovascular: Regular rate and rhythm with a normal S1 and S2. No gallops, murmurs, or rubs. Normal PMI, no JVD. No pulse deficits. Respiratory: Lungs have equal breath sounds bilaterally, clear to auscultation and percussion. No rales, rhonchi or wheezes noted. No increased work of breathing, no retractions or nasal flaring. Abdomen/GI: Soft, non-tender, with normal bowel sounds. No distension or tympany. No guarding or rebound. No evidence of tenderness throughout. Back: No spinal tenderness. No costovertebral tenderness. Full range of motion. Pelvic Exam: Normal external genitalia. Speculum exam with closed cervical os, no discharge or bleeding noted. Bimanual exam with normal adnexa, no adnexal or cervical motion tenderness. Normal uterus. Female : Normal external genitalia. 06:38 Eyes: Pupils: no acute changes, equal, round, and reactive to light and accomodation, Extraocular movements: Conjunctiva: injected, Corneas: abrasion, that is moderate sized, at 6 o'clock, Sclera: no appreciated abnormality, Anterior chamber: normal, Lids and lashes: edema, of the left eye, Visual ford: no acute changes, Nystagmus: is not appreciated, Vital Signs: 06:25 BP 152 / 98; Pulse 81; Resp 16; Temp 98.3; Pulse Ox 99% on R/A; Weight 58.97 kg; Height bm8 5 ft. 6 in. ; Pain 6/10; 06:41 BP 133 / 98; Pulse 96; Resp 16; Temp 98.3; Pulse Ox 100% on R/A; Pain 0/10; bm8 06:25 Body Mass Index 20.98 (58.97 kg, 167.64 cm) bm8 06:25 Pain Scale: Adult bm8 06:41 Pain Scale: Adult bm8 [place] Coma Score: 06:29 Eye Response: spontaneous(4). Motor Response: obeys commands(6). Verbal Response: bm8 oriented(5). Total: 15. MDM: 06:14 Patient medically screened. [facility] 06:51 Differential diagnosis: Corneal abrasion of Corneal ulcer of Foreign body in Acute gabrielle iritis of Acute glaucoma in Data reviewed: vital signs, nurses notes. Consideration of Admission/Observation Escalation of care including admission/observation considered. I considered the following discharge prescriptions or medication management in the emergency department Medications were administered in the Emergency Department. See MAR. Test considered but Not performed: Labs: no labs. Historians other than the Patient: pt well informed. Care significantly affected by the following chronic conditions: none. Counseling: I had a detailed discussion with the patient and/or guardian regarding the historical points, exam findings, and any diagnostic results supporting the discharge/admit diagnosis, the need for outpatient follow up, for definitive care, an opthalmologist. 10/17 06:16 Order name: Eye Tray; Complete Time: 06:22 [facility] 10/17 06:33 Order name: Misc. Order: patch; Complete Time: 06:40 [facility] Administered Medications: 06:25 Drug: Tetracaine Ophthalmic Drops 0.5 % 1 drops Ophthalmic once Route: Ophthalmic; bm8 Site: left eye; 07:03 Follow up: Response: No adverse reaction [facility] 06:25 Drug: Fluorescein Ophthalmic Strip 1 strip Ophthalmic once Route: Ophthalmic; Site: bm8 left eye; 07:02 Follow up: Response: No adverse reaction 8 06:40 Drug: Tobrex Ophthalmic Ointment 0.3 % 1 application Ophthalmic in right eye once bm8 Route: Ophthalmic; Site: left eye; 07:02 Follow up: Response: No adverse reaction [facility] 06:43 Not Given (Physician Discretion): cyclopentolatedrops (1 %) 1 drops Ophthalmic once bm8 06:54 CANCELLED (Physician Discretion): vigamoxdrops 0.5 % 2 drops Ophthalmic once lg3 06:55 Drug: Gvrzivjy-Krnjwlcgi-Qvvgluxbug Ophthalmic Drops 1 drops Ophthalmic in left eye lg3 once Route: Ophthalmic; Site: left eye; 07:02 Follow up: Response: Medication administered at discharge. 8 07:02 Drug: [place] PO 10 mg-325 mg 1 tabs PO once Route: PO; 8 07:02 Follow up: Response: Medication administered at discharge. 8 Disposition Summary: 10/18/23 06:55 Discharge Ordered Notes: Location: Home gabrielle Problem: new gabrielle Symptoms: have improved gabrielle Condition: Stable gabrielle Diagnosis - Injury of conjunctiva and corneal abrasion without foreign body, left eye gabrielle Followup: gabrielle - With: Private Physician - When: 2 - 3 days - Reason: Recheck today's complaints, Continuance of care, Re-evaluation by your physician Followup: gabrielle - With: Adiel Nesbitt MD - When: Tomorrow - Reason: Recheck today's complaints, Continuance of care, Re-evaluation by your physician Discharge Instructions: - Discharge Summary Sheet gabrielle - Corneal Abrasion gabrielle - Corneal Abrasion, [id number] [facility] Forms: - Medication Reconciliation Form gabrielle - Antibiotic Education gabrielle - Prescription Opioid Use gabrielle - Patient Portal Instructions [facility] - Leadership Thank You Letter [facility] Prescriptions: - acetaminophen-codeine 300-30 mg Oral tablet - take 2 tablet ORAL route every 6 hours as needed for pain; 20 tablet; Refills: gabrielle 0, Product Selection Permitted - gwwjtgtv-vudamrjlf-upqpuowguz 1.75 mg-10,000 unit-0.025mg/mL Ophthalmic drops - instill 1 drop OPHTHALMIC route every 4 hours; 3.5 milliliter; Refills: 0, gabrielle Product Selection Permitted Signatures: Tobin Azevedo MD MD cha Able, Lacie RN RN 3 Tip Vargas RN RN 8 Corrections: (The following items were deleted from the chart) 06:28 06:27 PMHx: Hypertension; 8 bm8 06:54 06:38 Vigamox Ophthalmic Drops 0.5 % 2 drops Ophthalmic once ordered. [facility] 06:54 06:41 Vigamox Ophthalmic Drops 0.5 % 2 drops Ophthalmic once given. 8 lg3 06:54 06:54 Vigamox Ophthalmic Drops 0.5 % 2 drops Ophthalmic once ordered. lg3 lg3
--- NOTE | 2023-10-18 06:55 | ER ---
Nurse's Notes [facility] Name: Isis Mendez Age: 33 yrs Sex: Female : 1990 Arrival Date: 10/18/2023 Time: 06:10 Bed 5 Private MD: Diagnosis: Injury of conjunctiva and corneal abrasion without foreign body, left eye Presentation: 10/17 06:25 Chief complaint: Patient states: "I think i got something in my left eye last night and bm8 its been bothering me all night.". Coronavirus screen: At this time, the client does not indicate any symptoms associated with coronavirus-19. Ebola Screen: Patient negative for fever greater than or equal to 101.5 degrees Fahrenheit, and additional compatible Ebola Virus Disease symptoms Patient denies exposure to infectious person. Patient denies travel to an Ebola-affected area in the 21 days before illness onset. No symptoms or risks identified at this time. Initial Sepsis Screen: Does the patient meet any 2 criteria? No. Patient's initial sepsis screen is negative. Does the patient have a suspected source of infection? No. Patient's initial sepsis screen is negative. Risk Assessment: Do you want to hurt yourself or someone else? Patient reports no desire to harm self or others. Onset of symptoms was October 17, 2023 at 19:00. 06:25 Method Of Arrival: Ambulatory bm8 06:25 Acuity: LUCAS 3 bm8 Triage Assessment: 06:27 General: Appears in no apparent distress. comfortable, Behavior is calm, cooperative, bm8 appropriate for age. Pain: Complains of pain in left eye. EENT: Eyes are tearing on outer aspect of conjuctiva of left eye, iris of left eye and inner aspect of conjunctiva of left eye. Neuro: No deficits noted. Level of Consciousness is awake, alert, obeys commands, Oriented to person, place, time, situation. Cardiovascular: Denies chest pain, lightheadedness, shortness of breath, Capillary refill < 3 seconds Patient's skin is warm and dry. Respiratory: Airway is patent Trachea midline Respiratory effort is even, unlabored, Respiratory pattern is regular, symmetrical. GI: No signs and/or symptoms were reported involving the gastrointestinal system. : No signs and/or symptoms were reported regarding the genitourinary system. Derm: No signs and/or symptoms reported regarding the dermatologic system. Musculoskeletal: No signs and/or symptoms reported regarding the musculoskeletal system. 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 - Infectious Disease History:: Denies. - Social history:: Smoking status: Patient denies any tobacco usage or history of. Patient/guardian denies using alcohol, street drugs. Screenin:29 [facility] ED Fall Risk Assessment (Adult) History of falling in the last 3 months, bm8 including since admission No falls in past 3 months (0 pts) Confusion or Disorientation No (0 pts) Intoxicated or Sedated No (0 pts) Impaired Gait No (0 pts) Mobility Assist Device Used No (0 pt) Altered Elimination No (0 pt) Score/Fall Risk Level 0 - 2 = Low Risk Oriented to surroundings, Maintained a safe environment, Educated pt \\T\\ family on fall prevention, incl call for assistance when getting out of bed, Assessed \\T\\ reinforced patient's understanding of fall precautions. Abuse screen: Denies threats or abuse. Nutritional screening: No deficits noted. Tuberculosis screening: No symptoms or risk factors identified. Assessment: 06:29 Reassessment: see triage assessment. bm8 06:41 EENT: Reports pain reduced. eye patch placed on left eye.. bm8 Vital Signs: 06:25 BP 152 / 98; Pulse 81; Resp 16; Temp 98.3; Pulse Ox 99% on R/A; Weight 58.97 kg; Height bm8 5 ft. 6 in. ; Pain 6/10; 06:41 BP 133 / 98; Pulse 96; Resp 16; Temp 98.3; Pulse Ox 100% on R/A; Pain 0/10; bm8 06:25 Body Mass Index 20.98 (58.97 kg, 167.64 cm) bm8 06:25 Pain Scale: Adult bm8 06:41 Pain Scale: Adult bm8 [place] Coma Score: 06:29 Eye Response: spontaneous(4). Motor Response: obeys commands(6). Verbal Response: bm8 oriented(5). Total: 15. ED Course: 06:12 Patient arrived in ED. [email or web address] 06:14 Tobin Azevedo MD is Attending Physician. gabrielle 06:25 Tip Vargas, RN is Primary Nurse. bm8 06:27 Triage completed. bm8 06:27 Arm band placed on right wrist. bm8 06:29 Patient has correct armband on for positive identification. Bed in low position. Adult bm8 w/ patient. Client placed on continuous cardiac and pulse oximetry monitoring. NIBP monitoring applied. Pulse ox on. NIBP on. Door closed. Noise minimized. Verbal reassurance given. 06:29 Assist provider with eye exam of left eye. using fluorescein stain, Performed by Tobin Azevedo MD Patient tolerated well. Patient did not have IV access during this emergency room visit. 06:54 Adiel Son MD is Referral Physician. gabrielle 07:03 Provided Education on: post er care follow up with dr son at noon on thursday. bm8 Administered Medications: 06:25 Drug: Tetracaine Ophthalmic Drops 0.5 % 1 drops Ophthalmic once Route: Ophthalmic; bm8 Site: left eye; 07:03 Follow up: Response: No adverse reaction bm8 06:25 Drug: Fluorescein Ophthalmic Strip 1 strip Ophthalmic once Route: Ophthalmic; Site: [facility] left eye; 07:02 Follow up: Response: No adverse reaction bm8 06:40 Drug: Tobrex Ophthalmic Ointment 0.3 % 1 application Ophthalmic in right eye once bm8 Route: Ophthalmic; Site: left eye; 07:02 Follow up: Response: No adverse reaction bm8 06:43 Not Given (Physician Discretion): cyclopentolatedrops (1 %) 1 drops Ophthalmic once bm8 06:54 CANCELLED (Physician Discretion): vigamoxdrops 0.5 % 2 drops Ophthalmic once lg3 06:55 Drug: Abbahyqh-Yyxwjqmnc-Kgdpjcheyy Ophthalmic Drops 1 drops Ophthalmic in left eye lg3 once Route: Ophthalmic; Site: left eye; 07:02 Follow up: Response: Medication administered at discharge. bm8 07:02 Drug: [place] PO 10 mg-325 mg 1 tabs PO once Route: PO; bm8 07:02 Follow up: Response: Medication administered at discharge. bm8 Medication: 06:29 VIS not applicable for this client. bm8 Outcome: 06:55 Discharge ordered by . gabrielle 07:03 Discharged to home ambulatory, bm8 07:03 Condition: stable 07:03 Discharge instructions given to patient, family, Instructed on discharge instructions, follow up and referral plans. no drinking with medication, medication usage, safety practices, eye care 07:05 Patient left the ED. bm8 Signatures: Tobin Azevedo MD MD cha Able, Lacie, RN RN lg3 Angela Saha6 Tip Vargas, RN RN bm8 Corrections: (The following items were deleted from the chart) 06:28 06:27 PMHx: Hypertension; bm8 bm8 06:54 06:41 Vigamox Ophthalmic Drops 0.5 % 2 drops Ophthalmic in left eye bm8 lg3
[2023-10-18] MEDS ORDERED: HYDROCODONE/APAP 10/325 TAB ONE (06:58)
[2023-10-18 07:26] VITALS: BP 133/98; TEMP 98.3; O2SAT 100
== END 2023-10-18 07:05 | disposition home or self-care (01) ==
LOC: ER 06:10
DX: S05.02XA Injury of conjunctiva and corneal abrasion without foreign body, left eye, initial encounter (principal)

== ENCOUNTER 2023-10-18 15:56 | Emergency (ER) | payer SELFPAY ==
--- OUTSIDE RECORDS SUMMARY | 2023-10-18 15:58 | XMS REPORT | Continuity of Care Document ---
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
[2023-10-18] MEDS ORDERED: TETRACAINE HCL 0.5% 4ML OPTH ONE (16:24)
[2023-10-18] MEDS ORDERED: FLUORESCEIN SODIUM 1 MG/WRAP ONE (16:25)
--- NOTE | 2023-10-18 16:46 | ER ---
Nurse's Notes [facility] Name: Isis Mendez Age: 33 yrs Sex: Female : 1990 Arrival Date: 10/18/2023 Time: 15:56 Bed 11 Private MD: Diagnosis: Injury of conjunctiva and corneal abrasion without foreign body Presentation: 10/17 16:06 Chief complaint: Seen in ED this morning for eye pain, reports pain is getting worse. hb Coronavirus screen: At this time, the client does not indicate any symptoms associated with coronavirus-19. Ebola Screen: No symptoms or risks identified at this time. Initial Sepsis Screen: Does the patient meet any 2 criteria? No. Patient's initial sepsis screen is negative. Does the patient have a suspected source of infection? No. Patient's initial sepsis screen is negative. Risk Assessment: Do you want to hurt yourself or someone else? Patient reports no desire to harm self or others. Onset of symptoms was October 16, 2023. 16:06 Method Of Arrival: Ambulatory hb 16:06 Acuity: LUCAS 4 hb Triage Assessment: 16:07 General: Appears in no apparent distress. Behavior is calm, cooperative. Pain: Pain hb currently is 10 out of 10 on a pain scale. EENT: Reports eye pain. Neuro: Level of Consciousness is awake, alert, obeys commands, Oriented to person, place, time, situation. Cardiovascular: Patient's skin is warm and dry. Respiratory: Respiratory effort is even, unlabored, Respiratory pattern is regular, symmetrical. Historical: - Allergies: 16:07 No Known Allergies; hb - Home Meds: 16:07 None [Active]; hb - PMHx: 16:07 None; hb - PSHx: 16:07 None; hb - Immunization history:: Adult Immunizations up to date. - Infectious Disease History:: Denies. - Social history:: Smoking status: Patient denies any tobacco usage or history of. Screenin:15 [facility] ED Fall Risk Assessment (Adult) History of falling in the last 3 months, kb3 including since admission No falls in past 3 months (0 pts) Confusion or Disorientation No (0 pts) Intoxicated or Sedated No (0 pts) Impaired Gait No (0 pts) Mobility Assist Device Used No (0 pt) Altered Elimination No (0 pt) Score/Fall Risk Level 0 - 2 = Low Risk. Abuse screen: Denies threats or abuse. Denies injuries from another. Nutritional screening: No deficits noted. Tuberculosis screening: No symptoms or risk factors identified. Assessment: 16:00 General: Appears distressed, uncomfortable, Behavior is anxious, crying. kb3 16:00 EENT: Reports blurred vision in outer aspect of conjuctiva of left eye, iris of left kb3 eye and inner aspect of conjunctiva of left eye pain in left eye. Vital Signs: 16:06 BP 139 / 95; Pulse 85; Resp 16; Temp 98.5(O); Pulse Ox 100% on R/A; Pain 10/10; hb 17:00 BP 127 / 78; Pulse 80; Resp 18; Temp 98.3; Pulse Ox 100% ; kb3 16:06 Pain Scale: Adult hb ED Course: 15:58 Patient arrived in ED. mr 16:01 Soto Cole MD is Attending Physician. ec2 16:07 Triage completed. hb 16:08 Arm band placed on. hb 16:15 Patient has correct armband on for positive identification. Bed in low position. Call kb3 light in reach. Adult w/ patient. Provided Education on: Plan of care. 16:15 No provider procedures requiring assistance completed. Patient did not have IV access kb3 during this emergency room visit. 16:45 Adiel Nesbitt MD is Referral Physician. ec2 Administered Medications: 17:01 Drug: Tetracaine Ophthalmic Drops 0.5 % 1 drops Ophthalmic once Route: Ophthalmic; kb3 Site: left eye; Medication: 16:15 VIS not applicable for this client. kb3 Outcome: 16:45 Discharge ordered by . ec2 17:07 Discharged to home ambulatory, kb3 17:07 Condition: improved 17:07 Discharge instructions given to patient, family, Instructed on discharge instructions, follow up and referral plans. medication usage, Demonstrated understanding of instructions, follow-up care, medications, Prescriptions given X 1, 17:07 Patient left the ED. kb3 Signatures: Ramona Cyr, Reg Reg mr Destiney Beckford, RN RN Kavita Echavarria RN RN kb3 Soto Cole MD MD ec2
--- NOTE | 2023-10-18 16:46 | EDPHYS ---
Physician Documentation [facility] Name: Isis Mendez Age: 33 yrs Sex: Female : 1990 Arrival Date: 10/18/2023 Time: 15:56 Bed 11 Private MD: ED Physician Soto Cole HPI: 10/17 16:12 This 33 yrs old Black Female presents to ER via Ambulatory with complaints of Eye Pain. ec2 16:12 Patient arrives today for evaluation of left eye pain. Patient reports she was seen ec2 earlier for left eye pain, redness and drainage. Patient states symptoms been ongoing for 3 days, started on Thursday. No fevers or chills, has noted some drainage from the area. Reports no previous eye surgeries, no history of glaucoma. Historical: - Allergies: 16:07 No Known Allergies; hb - Home Meds: 16:07 None [Active]; hb - PMHx: 16:07 None; hb - PSHx: 16:07 None; hb - Immunization history:: Adult Immunizations up to date. - Infectious Disease History:: Denies. - Social history:: Smoking status: Patient denies any tobacco usage or history of. ROS: 16:12 Constitutional: as per hpi ec2 Exam: 16:12 Constitutional: GEN: NAD Head: atraumatic Eyes: Left eye with significant ec2 conjunctival injection, significant purulent drainage noted. Ears: External ears are normal. CV: regular rate LUNGS: no respiratory distress ABD: non-distended SKIN: no evidence of rashes MSK: no evidence of trauma NEURO: moves all extremities equally Vital Signs: 16:06 BP 139 / 95; Pulse 85; Resp 16; Temp 98.5(O); Pulse Ox 100% on R/A; Pain 10/10; hb 17:00 BP 127 / 78; Pulse 80; Resp 18; Temp 98.3; Pulse Ox 100% ; kb3 16:06 Pain Scale: Adult hb MDM: 16:02 Patient medically screened. ec2 16:12 Data reviewed: vital signs. ED course: Patient arrives today for left eye pain and ec2 redness along with drainage. Examination remarkable for eye findings as above. Will anesthetize the eye, will attempt further eye pressures and stain for . 16:44 ED course: I anesthetized the eye with significant improvement in the patient's ec2 symptoms. Large corneal abrasion noted at the center of the eye. Patient was prescribed medications earlier today with Dr. Azevedo and was instructed to go see Dr. Nesbitt. I agree with the plan of care, presentations with corneal abrasion, already prescribed topical medications. Will discharge home, also prescribed topical anesthetic medication. Return precautions given.. 16:47 ED course: Of note patient is also not picked up her prescriptions that she was ec2 prescribed this morning. 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 Will also prescribe the patient cyclopentolate. Return precautions given . 10/17 16:14 Order name: Eye Tray; Complete Time: 16:25 ec2 10/17 16:14 Order name: Fluoresene Opth strip; Complete Time: 16:25 ec2 Administered Medications: 17:01 Drug: Tetracaine Ophthalmic Drops 0.5 % 1 drops Ophthalmic once Route: Ophthalmic; kb3 Site: left eye; Disposition Summary: 10/18/23 16:45 Discharge Ordered Notes: Location: Home ec2 Condition: Stable ec2 Diagnosis - Injury of conjunctiva and corneal abrasion without foreign body ec2 Followup: ec2 - With: Adiel Nesbitt MD - When: Tomorrow - Reason: Recheck today's complaints Discharge Instructions: - Discharge Summary Sheet ec2 - Corneal Abrasion, [id number] ec2 Forms: - Medication Reconciliation Form ec2 - Antibiotic Education ec2 - Prescription Opioid Use ec2 - Patient Portal Instructions ec2 - Leadership Thank You Letter ec2 Prescriptions: - cyclopentolate 1 % Ophthalmic drops - instill 1 drop OPHTHALMIC route 4 times per day compress lacrimal sac for 1-2 ec2 minutes after instillation; 15 milliliter; Refills: 0, Product Selection Permitted Signatures: Destiney Beckford RN RN Kavita Echavarria RN RN kb3 Soto Cole MD MD ec2
[2023-10-18 17:29] VITALS: BP 127/78; TEMP 98.3; O2SAT 100
== END 2023-10-18 17:07 | disposition home or self-care (01) ==
LOC: ER 15:56
DX: S05.02XA Injury of conjunctiva and corneal abrasion without foreign body, left eye, initial encounter (principal)

== ENCOUNTER 2023-10-20 01:53 | Emergency (ER) | payer SELFPAY ==
--- OUTSIDE RECORDS SUMMARY | 2023-10-20 01:56 | XMS REPORT | Continuity of Care Document ---
Author Name Unknown Address [address] [place] [address] [facility] Address [address] [place] [id number] Care Team Providers Care Rose Grader Name Role Phone Unavailable Unavailable Unavailable
[2023-10-20] MEDS ORDERED: TETRACAINE HCL 0.5% 4ML OPTH ONE ×2 (02:25→06:01)
[2023-10-20] MEDS ORDERED: FLUORESCEIN SODIUM 1 MG/WRAP ONE (02:38)
[2023-10-20] MEDS ORDERED: ONDANSETRON 4 MG (ODT) TAB ONE (02:50)
[2023-10-20] MEDS ORDERED: CEFTRIAXONE 1000 MG/VIAL ONE (02:50)
[2023-10-20] MEDS ORDERED: HYDROCODONE/APAP 10/325 TAB ONE (02:51)
[2023-10-20] MEDS ORDERED: NA CHLORIDE 0.9% 50 ML ONE (02:51)
[2023-10-20 03:18] LABS: Absolute Basophils 0.1 K/uL (0-0.5); Absolute Eosinophils 0.1 K/uL (0-0.5); Absolute Lymphocytes (CBC) 2.2 K/uL (0.7-4.9); Absolute Monocytes 0.5 K/uL (0.1-1.3); Absolute Neutrophil 4.5 K/uL (1.8-8.0); Basophils % 0.7 % (0-1.3); Eosinophils % 0.7 % (0-4.4); Hemoglobin 13.2 g/dL (12.0-15.0); Lymphocytes % 30.4 % (15.3-44.8); MCH 33.8 pg (27.0-35.0); MCHC 34.7 g/dL (32.0-36.0); MCV 97.4 fL (80-100); MPV 9.7 fL (7.6-11.3); Monocytes % 7.3 % (3.3-12.3); Neutrophils % 60.9 % (41.7-73.7); Nucleated Red Blood Cells % 0.2 % (0-0); Platelets 164 thou/uL (152-406); RBC Red Blood Cell Count 3.89 M/uL (3.86-4.86)
[2023-10-20 03:19] LABS: PT Prothrombin Time 13.1 SECONDS (9.5-12.5); Protime INR 1.2
[2023-10-20] MEDS ORDERED: DIAZEPAM 10 MG/2 ML INJ SYRINGE ONE (03:34)
[2023-10-20] MEDS ORDERED: KETOROLAC 30 MG/ML INJ ONE (03:34)
[2023-10-20 03:40] LABS: Albumin 3.6 g/dL (3.4-5.0); Albumin/Globulin Ratio 0.9 (1.1-1.8); Anion Gap 4.2 mEq/L (5.0-15.0); Bilirubin Total 0.3 mg/dL (0.2-1.0); Potassium 3.2 mEq/L (3.5-5.1); Protein, Total 7.6 g/dL (6.4-8.2)
[2023-10-20] MEDS ORDERED: TOBRAMYCIN SULF 0.3% OPTH OINT ONE (04:17)
--- NOTE | 2023-10-20 06:13 | ER ---
Nurse's Notes [facility] Name: Isis Mendez Age: 33 yrs Sex: Female : 1990 Arrival Date: 10/20/2023 Time: 01:53 Bed 8 Private MD: Diagnosis: Injury of conjunctiva and corneal abrasion without foreign body, left eye;Left moderate corneal abrasion, left bacterial conjunctivitis Presentation: 10/19 02:11 Chief complaint: Patient states: L eye pain that began a few days ago. Pt reports she ss has been seen in the ER twice in the past 3 days for the same complaints. 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 Coronavirus screen: Client denies travel out of the [place] in the last 14 days. Ebola Screen: Patient denies exposure to infectious person. Patient denies travel to an Ebola-affected area in the 21 days before illness onset. Initial Sepsis Screen: Does the patient meet any 2 criteria? No. Patient's initial sepsis screen is negative. Does the patient have a suspected source of infection? No. Patient's initial sepsis screen is negative. Onset of symptoms is unknown. 02:11 Method Of Arrival: Ambulatory ss 02:11 Acuity: LUCAS 3 ss 02:15 Risk Assessment: Do you want to hurt yourself or someone else? Patient reports no 8 desire to harm self or others. 02:15 Mechanism of Injury: scratching eye. The patient denies any loss of vision. lc8 Triage Assessment: 02:12 General: Appears distressed, uncomfortable, Behavior is cooperative, anxious, crying, ss fussy. Pain: Complains of pain in left eye. Neuro: Level of Consciousness is awake, alert. Respiratory: Airway is patent Respiratory effort is even, unlabored, Respiratory pattern is regular, symmetrical. 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 - Infectious Disease History:: Denies. - Social history:: Smoking status: Patient/guardian denies using tobacco, but has a distant history of tobacco abuse. - Family history:: not pertinent. Screenin:15 [facility] ED Fall Risk Assessment (Adult) History of falling in the last 3 months, lc8 including since admission No falls in past 3 months (0 pts) Confusion or Disorientation Yes (5 pts) Intoxicated or Sedated No (0 pts) Impaired Gait No (0 pts) Mobility Assist Device Used No (0 pt) Altered Elimination No (0 pt) Score/Fall Risk Level 0 - 2 = Low Risk Oriented to surroundings, Maintained a safe environment, Hourly rounding (assess needs \\T\\ fall precautionary measures) done. 02:15 Abuse screen: Denies threats or abuse. Denies injuries from another. Nutritional lc8 screening: No deficits noted. Tuberculosis screening: No symptoms or risk factors identified. Assessment: 02:15 General: Appears in no apparent distress. comfortable, Behavior is calm, cooperative. lc8 02:15 Pain: Complains of pain in right eye Pain at worst was 10 out of 10 on a pain scale. lc8 Neuro: Level of Consciousness is awake, alert, obeys commands, Oriented to person, place, time, situation. Cardiovascular: Capillary refill < 3 seconds Patient's skin is warm and dry. Respiratory: Airway is patent Respiratory effort is even, unlabored, Respiratory pattern is regular, symmetrical. GI: No deficits noted. : No deficits noted. EENT: Sclera/Cornea are cloudy in outer aspect of conjuctiva of left eye, iris of left eye and inner aspect of conjunctiva of left eye are reddened in outer aspect of conjuctiva of left eye, iris of left eye and inner aspect of conjunctiva of left eye. Derm: No signs and/or symptoms reported regarding the dermatologic system. Musculoskeletal: No signs and/or symptoms reported regarding the musculoskeletal system. 02:15 EENT: Eyes redness to l eye. lc8 04:00 Reassessment: Patient is alert, oriented x 3, equal unlabored respirations, skin lc8 warm/dry/pink. 05:00 Reassessment: Patient states feeling better. lc8 Vital Signs: 02:11 Resp 20; Pulse Ox 98% ; Weight 58.97 kg; Height 5 ft. 6 in. ; Pain 10/10; ss 02:12 BP 124 / 85; Pulse 110; Pulse Ox 98% on R/A; ss 05:00 BP 99 / 68; Pulse 85; Resp 16; Pulse Ox 99% on R/A; lc8 06:00 BP 122 / 85; Pulse 85; Resp 17; Pulse Ox 99% ; lc8 02:11 Body Mass Index 20.98 (58.97 kg, 167.64 cm) ss 02:11 Pain Scale: Adult ss Visual Acuity: 03:00 Left Eye Normal, React To Light, Reactive To Accomodation; Right Eye Normal, React To lc8 Light, Reactive To Accomodation; Without Lenses; Rogelio Coma Score: 06:17 Eye Response: spontaneous(4). Motor Response: obeys commands(6). Verbal Response: sp4 oriented(5). Total: 15. ED Course: 01:56 Patient arrived in ED. gm2 02:03 Pavel Walsh MD is Attending Physician. sp4 02:12 Triage completed. ss 02:12 Arm band placed on right wrist. ss 02:15 Patient has correct armband on for positive identification. Bed in low position. Call lc8 light in reach. Adult w/ patient. 02:15 Provided Education on: course of ed stay. lc8 02:27 Dianne Ramos, RN is Primary Nurse. lc8 02:40 Inserted saline lock: 20 gauge in right antecubital area, using aseptic technique. lc8 Blood collected. 02:47 PT-INR Sent. lc8 02:47 CMP Sent. lc8 02:47 CBC with Diff Sent. lc8 02:47 Test, Serum Sent. lc8 06:10 Assist provider with eye exam of left eye. using fluorescein stain, Performed by Pavel Walsh MD Patient tolerated well. 06:12 Adiel Nesbitt MD is Referral Physician. sp4 06:26 IV discontinued, intact, Pressure dressing applied. lc8 Administered Medications: 02:21 CANCELLED (Physician Discretion): rocephin (ceftriaxone)1 grams IM once sp4 02:22 CANCELLED (Physician Discretion): [id number] mg IM once sp4 02:23 CANCELLED (Physician Discretion): diazepam5 mg IM once sp4 02:30 Drug: Tetracaine Ophthalmic Drops 0.5 % 1 drops Ophthalmic once {Note: admin by dr. veneica Walsh.} Route: Ophthalmic; Site: right eye; 02:59 Drug: Guy PO 10 mg-325 mg 1 tabs PO once Route: PO; lc8 03:42 Follow up: Response: No adverse reaction bm8 02:59 Drug: Rocephin - Rocephin (cefTRIAXone) IVPB 1 grams IVPB once over 30 mins; (mix in 50 lc8 mL NS) Route: IVPB; Infused Over: 30 mins; Site: right antecubital; 03:30 Follow up: Response: No adverse reaction; IV Status: Completed infusion lc8 03:42 Follow up: Response: No adverse reaction; IV Status: Completed infusion; IV Intake: [id number] 03:01 Not Given (Patient Refused): ondansetron4 mg PO once lc8 03:42 Drug: Ketorolac IVP 30 mg IVP once Route: IVP; Site: right antecubital; bm8 03:42 Drug: Diazepam IVP 5 mg IVP once Route: IVP; Site: right antecubital; bm8 04:18 CANCELLED (Physician Discretion): vigamoxdrops 0.5 % 1 drops Ophthalmic once sp4 05:20 Drug: Tobramycin Ophthalmic Drops (0.3 %) 1 drops Ophthalmic once Route: Ophthalmic; lc8 Site: left eye; Medication: 05:00 VIS not applicable for this client. lc8 Intake: 03:42 IV: 50ml; Total: 50ml. bm8 Outcome: 06:12 Discharge ordered by . sp4 06:25 Discharged to home ambulatory, with family, lc8 06:25 Condition: stable 06:25 Discharge instructions given to patient, Instructed on discharge instructions, follow up and referral plans. medication usage, Demonstrated understanding of instructions, follow-up care, medications, 06:27 Patient left the ED. 8 Signatures: Marisol Chaidez RN RN Pavel Walsh MD MD sp4 Abbey Her [facility] Tip Vargas RN RN bm8 Dianne Ramos RN RN lc8
--- NOTE | 2023-10-20 06:14 | EDPHYS ---
Physician Documentation [facility] Name: Isis Mendez Age: 33 yrs Sex: Female : 1990 Arrival Date: 10/20/2023 Time: 01:53 Bed 8 Private MD: ED Physician Pavle Walsh HPI: 10/19 02:03 This 33 yrs old Black Female presents to ER via Unassigned with complaints of Eye Pain. sp4 06:15 33-year-old female presents with worsening of left thigh pain associated with recent sp4 diagnosis of left corneal abrasion. On 10/18/2023 patient was here was evaluated and prescribed acetaminophen-codeine 300-30 mg Oral tablet take 2 tablet ORAL route every 6 hours as needed for pain; 20 tablet; rkdqwxyy-cntpnhbrk-addelenaya 1.75 mg-10,000 unit-0.025mg/mL Ophthalmic drops instill 1 drop OPHTHALMIC route every 4 hours; 3.5 milliliter. Patient in the return with worsening left eye pain. Was managed in ER and released on the same day 10/18/2023. She was prescribed the following- cyclopentolate 1 % Ophthalmic drops instill 1 drop OPHTHALMIC route 4 times per day compress lacrimal sac for 1-2 minutes after instillation; 15 milliliter . 06:17 Patient states she did not fill her medications and did not follow-up. Patient now sp4 returns with worsening left eye pain and tearing. . 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 - Infectious Disease History:: Denies. - Social history:: Smoking status: Patient/guardian denies using tobacco, but has a distant history of tobacco abuse. - Family history:: not pertinent. ROS: 06:17 Constitutional: Negative for fever, chills, and weight loss, positive left eye pain sp4 left eye tearing and exudate 06:17 All other systems are negative, Exam: 06:17 Visual Acuity: I have reviewed the nursing documentation. sp4 06:17 Constitutional: This is a well developed, well nourished patient who is awake, alert, and in no acute distress. Head/Face: Normocephalic, atraumatic. Eyes: Pupils equal round and reactive to light, extra-ocular motions intact. Lids and lashes normal. Positive left eye moderate corneal abrasion just inferior to the pupil. Moderate left eye conjunctival erythema and positive irritation with clear exudate ENT: Nares patent. No nasal discharge, no septal abnormalities noted. Tympanic membranes are normal and external auditory canals are clear. Oropharynx with no redness, swelling, or masses, exudates, or evidence of obstruction, uvula midline. Mucous membranes moist. Neck: Trachea midline, no thyromegaly or masses palpated, and no cervical lymphadenopathy. Supple, full range of motion without nuchal rigidity, or vertebral point tenderness. Chest/axilla: Normal chest wall appearance and motion. Nontender with no deformity. No lesions are appreciated. Cardiovascular: Regular rate and rhythm with a normal S1 and S2. No gallops, murmurs, or rubs. Normal PMI, no JVD. No pulse deficits. Respiratory: Lungs have equal breath sounds bilaterally, clear to auscultation and percussion. No rales, rhonchi or wheezes noted. No increased work of breathing, no retractions or nasal flaring. Abdomen/GI: Soft, with normal bowel sounds. No distension or tympany. No guarding or rebound. No evidence of tenderness throughout. Back: No spinal tenderness. No costovertebral tenderness. Skin: Warm, dry with normal turgor. Normal color with no rashes, no lesions, and no evidence of cellulitis. MS/ Extremity: Pulses equal, no cyanosis. Neurovascular intact. Full, normal range of motion. Neuro: Awake and alert, GCS 15, oriented to person, place, time, and situation. Cranial nerves II-XII grossly intact. Motor strength 5/5 in all extremities. Sensory grossly intact. Psych: Awake, alert, with orientation to person, place and time. Behavior, mood, and affect are within normal limits Vital Signs: 02:11 Resp 20; Pulse Ox 98% ; Weight 58.97 kg; Height 5 ft. 6 in. ; Pain 10/10; ss 02:12 BP 124 / 85; Pulse 110; Pulse Ox 98% on R/A; ss 05:00 BP 99 / 68; Pulse 85; Resp 16; Pulse Ox 99% on R/A; lc8 06:00 BP 122 / 85; Pulse 85; Resp 17; Pulse Ox 99% ; lc8 02:11 Body Mass Index 20.98 (58.97 kg, 167.64 cm) ss 02:11 Pain Scale: Adult ss Rogelio Coma Score: 06:17 Eye Response: spontaneous(4). Motor Response: obeys commands(6). Verbal Response: sp4 oriented(5). Total: 15. Visual Acuity: 03:00 Left Eye Normal, React To Light, Reactive To Accomodation; Right Eye Normal, React To lc8 Light, Reactive To Accomodation; Without Lenses; MDM: 02:05 Patient medically screened. sp4 06:20 Differential diagnosis: Corneal abrasion of Corneal ulcer of Foreign body in sp4 Ultraviolet keratitis in. Data reviewed: vital signs, nurses notes, old medical records. ED course: Pain has improved after medications that were administered IV and p.o. Tetracaine eyedrops is improved pain the most. Patient advised to continue tetracaine every 3 hours as needed for pain. Tobramycin ointment provided to be placed in the eye every 6 hours or 4 times a day. Patient was prescribed cephalexin p.o. for 10 days. Also prescribed ibuprofen as needed pain. Patient also prescribed tobramycin ophthalmic drops as a substitute for ophthalmic ointment . At this time patient understands all instructions and verbalizes her understanding. Advised to see music librarian in [address] Adiel Nesbitt contact information provided to the patient . . 10/19 02:21 Order name: Test, Serum; Complete Time: 05:36 sp4 10/19 02:21 Order name: CBC with Diff; Complete Time: 05:36 sp4 10/19 02:21 Order name: CMP; Complete Time: 05:36 sp4 18 02:21 Order name: PT-INR; Complete Time: 05:36 sp4 18 02:05 Order name: Eye Tray; Complete Time: 02:47 sp4 18 02:05 Order name: Fluoresene Opth strip; Complete Time: 02:47 sp4 18 02:21 Order name: Saline Lock; Complete Time: 02:47 sp4 Administered Medications: 02:21 CANCELLED (Physician Discretion): rocephin (ceftriaxone)1 grams IM once sp4 02:22 CANCELLED (Physician Discretion): fhehmxnmb23 mg IM once sp4 02:23 CANCELLED (Physician Discretion): diazepam5 mg IM once sp4 02:30 Drug: Tetracaine Ophthalmic Drops 0.5 % 1 drops Ophthalmic once {Note: admin by dr. venecia Walsh.} Route: Ophthalmic; Site: right eye; 02:59 Drug: [place] PO 10 mg-325 mg 1 tabs PO once Route: PO; lc8 03:42 Follow up: Response: No adverse reaction bm8 02:59 Drug: Rocephin - Rocephin (cefTRIAXone) IVPB 1 grams IVPB once over 30 mins; (mix in 50 lc8 mL NS) Route: IVPB; Infused Over: 30 mins; Site: right antecubital; 03:30 Follow up: Response: No adverse reaction; IV Status: Completed infusion lc8 03:42 Follow up: Response: No adverse reaction; IV Status: Completed infusion; IV Intake: [id number] 03:01 Not Given (Patient Refused): ondansetron4 mg PO once lc8 03:42 Drug: Ketorolac IVP 30 mg IVP once Route: IVP; Site: right antecubital; bm8 03:42 Drug: Diazepam IVP 5 mg IVP once Route: IVP; Site: right antecubital; bm8 04:18 CANCELLED (Physician Discretion): vigamoxdrops 0.5 % 1 drops Ophthalmic once sp4 05:20 Drug: Tobramycin Ophthalmic Drops (0.3 %) 1 drops Ophthalmic once Route: Ophthalmic; 8 Site: left eye; Disposition Summary: 10/20/23 06:12 Discharge Ordered Notes: Location: Home sp4 Problem: new sp4 Symptoms: have improved sp4 Condition: Stable sp4 Diagnosis - Injury of conjunctiva and corneal abrasion without foreign body, left eye sp4 - Left moderate corneal abrasion, left bacterial conjunctivitis sp4 Followup: sp4 - With: Adiel Nesbitt MD - When: 48 Hours - Reason: Recheck today's complaints Discharge Instructions: - Discharge Summary Sheet sp4 - Corneal Abrasion, Irzq-xg-Qdoj sp4 Prescriptions: - tobramycin 0.3 % Ophthalmic drops - instill 2 drop OPHTHALMIC route every 6 hours for 7 days; 7 milliliter; sp4 Refills: 0, Product Selection Permitted - Cephalexin 500 mg Oral Capsule - take 1 capsule ORAL route every 12 hours for 10 days; 20 capsule; Refills: 0, sp4 Product Selection Permitted - Ibuprofen 800 mg Oral Tablet - take 1 tablet ORAL route every 8 hours As needed take with food; 30 tablet; sp4 Refills: 0, Product Selection Permitted Signatures: Dispatcher [employer] Marisol Byrd, RN RN ss Pavel Walsh MD MD sp4 Tip Vargas RN RN bm8 Dianne Ramos RN RN lc8 Corrections: (The following items were deleted from the chart) 02:21 02:20 Rocephin (cefTRIAXone) IM 1 grams IM once ordered. sp4 sp4 02:21 02:21 TEST, SERUM+SC.LAB.BRZ ordered. EDMS EDMS 02:21 02:21 CBC+H.LAB.BRZ ordered. EDMS EDMS 02:21 02:21 COMPREHENSIVE METABOLIC PANEL+C.LAB.BRZ ordered. EDMS EDMS 02:21 02:21 PROTIME (+INR)+COAG.LAB.BRZ ordered. EDMS EDMS 02:22 02:20 Ketorolac IM 60 mg IM once ordered. sp4 sp4 02:23 02:20 Diazepam IM 5 mg IM once ordered. sp4 sp4 04:18 02:38 Vigamox Ophthalmic Drops 0.5 % 1 drops Ophthalmic in both eyes once ordered. sp4 sp4 06:18 06:15 Patient in the return with worsening left eye pain. Was managed in ER and sp4 released on the same day 10/18/2023. sp4
[2023-10-20 06:50] VITALS: BP 122/85; O2SAT 99
== END 2023-10-20 06:27 | disposition home or self-care (01) ==
LOC: ER 01:53
DX: S05.02XA Injury of conjunctiva and corneal abrasion without foreign body, left eye, initial encounter (principal); H10.89 Other conjunctivitis
CPT/HCPCS: 36415; 80053; 84703; 85025; 85610; J0696; J3360; Q0162

== ENCOUNTER 2024-09-06 08:22 | Emergency (ER) | payer OTHER, SELFPAY ==
--- OUTSIDE RECORDS SUMMARY | 2024-09-06 08:26 | XMS REPORT | Continuity of Care Document ---
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
[2024-09-06] MEDS ORDERED: TETRACAINE HCL 0.5% 4ML OPTH ONE (08:58)
[2024-09-06] MEDS ORDERED: FLUORESCEIN SODIUM 1 MG/WRAP ONE (08:59)
[2024-09-06] MEDS ORDERED: IBUPROFEN 200 MG TAB PO ONE (09:15)
[2024-09-06] MEDS ORDERED: IBUPROFEN 400 MG TAB ONE (09:15)
[2024-09-06] MEDS ORDERED: ERYTHROMYCIN 3.5GM OPTH OINT OP ONE (09:30)
[2024-09-06] MEDS ORDERED: CEPHALEXIN 250 MG CAP ONE (09:41)
--- NOTE | 2024-09-06 09:58 | EDPHYS ---
Physician Documentation [facility] Name: Isis Mendez Age: 34 yrs Sex: Female : 1990 Arrival Date: 09/06/2024 Time: 08:22 Bed 16 Private MD: ED Physician Tobin Azevedo HPI: 09/06 09:22 This 34 yrs old Black Female presents to ER via Ambulatory with complaints of Eye gabrielle Problem - LT. 09:22 The patient sustained contusion, to the left eye. Onset: The symptoms/episode gabrielle began/occurred 2 day(s) ago. Duration: the symptoms are continuous. Aggravated by closing eye, rubbing, Alleviated by nothing, blinking, covering eye. Associated signs and symptoms: Pertinent positives: None. Pertinent negatives: None. Severity of symptoms: At their worst the symptoms were moderate in the emergency department the symptoms are unchanged. The patient has experienced similar episodes in the past, multiple times. used eye lashes, caused irritation. Historical: - Allergies: :03 No Known Allergies; hb - Home Meds: : None [Active]; hb - PMHx: 09: None; hb - PSHx: 09:03 None; hb - Immunization history:: Adult Immunizations up to date. - Infectious Disease History:: Denies. - Social history:: Smoking status: Patient denies any tobacco usage or history of. ROS: 09:26 Constitutional: Negative for fever, chills, and weight loss, ENT: Negative for injury, gabrielle pain, and discharge, Neck: Negative for injury, pain, and swelling, Cardiovascular: Negative for chest pain, palpitations, and edema, Respiratory: Negative for shortness of breath, cough, wheezing, and pleuritic chest pain, Abdomen/GI: Negative for abdominal pain, nausea, vomiting, diarrhea, and constipation, Back: Negative for injury and pain, MS/Extremity: Negative for injury and deformity, Skin: Negative for injury, rash, and discoloration, Neuro: Negative for headache, weakness, numbness, tingling, and seizure, Psych: Negative for depression, anxiety, suicide ideation, homicidal ideation, and hallucinations, Allergy/Immunology: Negative for hives, rash, and allergies, Endocrine: Negative for neck swelling, polydipsia, polyuria, polyphagia, and marked weight changes, Hematologic/Lymphatic: Negative for swollen nodes, abnormal bleeding, and unusual bruising, 09:26 Eyes: Positive for pain, swelling, of the left upper eyelid, left outer canthus, left inner canthus and left lower eyelid, Exam: 09:42 Constitutional: This is a well developed, well nourished patient who is awake, alert, gabrielle and in no acute distress. Head/Face: Normocephalic, atraumatic. ENT: Nares patent. No nasal discharge, no septal abnormalities noted. Tympanic membranes are normal and external auditory canals are clear. Oropharynx with no redness, swelling, or masses, exudates, or evidence of obstruction, uvula midline. Mucous membranes moist. Neck: Trachea midline, no thyromegaly or masses palpated, and no cervical lymphadenopathy. Supple, full range of motion without nuchal rigidity, or vertebral point tenderness. No Meningismus. Chest/axilla: Normal chest wall appearance and motion. Nontender with no deformity. No lesions are appreciated. Cardiovascular: Regular rate and rhythm with a normal S1 and S2. No gallops, murmurs, or rubs. Normal PMI, no JVD. No pulse deficits. Respiratory: Lungs have equal breath sounds bilaterally, clear to auscultation and percussion. No rales, rhonchi or wheezes noted. No increased work of breathing, no retractions or nasal flaring. Abdomen/GI: Soft, non-tender, with normal bowel sounds. No distension or tympany. No guarding or rebound. No evidence of tenderness throughout. Back: No spinal tenderness. No costovertebral tenderness. Full range of motion. Skin: Warm, dry with normal turgor. Normal color with no rashes, no lesions, and no evidence of cellulitis. MS/ Extremity: Pulses equal, no cyanosis. Neurovascular intact. Full, normal range of motion., bilateral aka Neuro: Awake and alert, GCS 15, oriented to person, place, time, and situation. Cranial nerves II-XII grossly intact. Motor strength 5/5 in all extremities. Sensory grossly intact. Cerebellar exam normal. Normal gait. 09:42 Eyes: Periorbital structures: cellulitis, that is mild, 09:54 Eyes: Periorbital structures: Pupils: no acute changes, equal, round, and reactive to [facility] light and accomodation, Extraocular movements: intact throughout, Conjunctiva: injected, in the left eye, Corneas: are normal, abrasion, is not appreciated, foreign body, is not appreciated, a fluorescein strip employed to appreciate the findings, Sclera: no appreciated abnormality, Anterior chamber: normal, no acute changes, Lids and lashes: edema, of the left eye, Nystagmus: is not appreciated, Vital Signs: 09:02 BP 127 / 95; Pulse 74; Resp 16; Temp 98.1; Pulse Ox 100% ; Weight 58.97 kg; Height 5 hb ft. 4 in. ; Pain 8/10; 09:45 BP 126 / 82; Pulse 74; Resp 16; Pulse Ox 100% on R/A; db 09:02 Body Mass Index 22.31 (58.97 kg, 162.56 cm) hb 09:02 Pain Scale: Adult hb MDM: 08:35 Medical Screening Exam initiated [facility] 09:55 Differential diagnosis: Corneal abrasion of Corneal ulcer of Foreign body in Acute gabrielle iritis of Acute glaucoma in left eye. Infectious conjunctivitis in Ultraviolet keratitis in left eye. Data reviewed: vital signs, nurses notes. Consideration of Admission/Observation Escalation of care including admission/observation considered. I considered the following discharge prescriptions or medication management in the emergency department Medications were administered in the Emergency Department. See MAR. Test considered but Not performed: Labs: NO LABS. Historians other than the Patient: PT WELL INFORMED. Care significantly affected by the following chronic conditions: NONE. 09/06 08:59 Order name: Fluoresene Opth strip; Complete Time: 09:11 [facility] Administered Medications: 09:20 Drug: Tetracaine Ophthalmic Drops 0.5 % 1 drops Ophthalmic once Route: Ophthalmic; db Site: left eye; 10:12 Follow up: Response: No adverse reaction db 09:20 Drug: Ibuprofen PO 600 mg PO once Route: PO; db 10:12 Follow up: Response: No adverse reaction db 09:29 Drug: ERYTHromycin Ophthalmic Ointment 1 application Ophthalmic once Route: Ophthalmic; db Site: left eye; 10:12 Follow up: Response: No adverse reaction db 09:42 Drug: Cephalexin PO 500 mg PO once Route: PO; db 10:12 Follow up: Response: No adverse reaction db 10:05 Drug: [place] PO 10 mg-325 mg 1 tabs PO once Route: PO; db 10:13 Follow up: Response: No adverse reaction db Disposition Summary: 09/06/24 09:58 Discharge Ordered Notes: Location: Home [facility] Problem: new [facility] Symptoms: have improved [facility] Condition: Stable [facility] Diagnosis - Other acute conjunctivitis - LEFT, BACTERIAL [facility] - Periorbital cellulitis - MILD gabrielle Followup: gabrielle - With: Private Physician - When: 2 - 3 days - Reason: Recheck today's complaints, Continuance of care, Re-evaluation by your physician Followup: gabrielle - With: Adiel Nesbitt MD - When: 1 - 2 days - Reason: Recheck today's complaints, Re-evaluation by your physician Discharge Instructions: - Discharge Summary Sheet [facility] - Orbital Cellulitis gabrielle - Bacterial Conjunctivitis, Adult [facility] - Bacterial Conjunctivitis, Adult, [id number] [facility] - Preseptal Cellulitis, Adult [facility] Forms: - Medication Reconciliation Form [facility] - Antibiotic Education [facility] - Prescription Opioid Use [facility] - Patient Portal Instructions [facility] - Leadership Thank You Letter [facility] Prescriptions: - Cephalexin 500 mg Oral Capsule - take 1 capsule ORAL route every 6 hours for 10 days; 40 capsule; Refills: 0, [facility] Product Selection Permitted - Ibuprofen 600 mg Oral tablet - take 1 tablet ORAL route every 6 hours As needed take with food; 20 tablet; [facility] Refills: 0, Product Selection Permitted - Erythromycin 5 mg/gram (0.5 %) Ophthalmic ointment - apply 1 centimeter OPHTHALMIC route every 4-6 hours for 7 days; 3.5 gram; [facility] Refills: 0, Product Selection Permitted Signatures: Tobin Azevedo MD MD cha Baxter, Heather, KAYDEN RN Doretha Alcantara RN RN db
--- NOTE | 2024-09-06 09:58 | ER ---
Nurse's Notes [facility] Name: Isis Mendez Age: 34 yrs Sex: Female : 1990 Arrival Date: 09/06/2024 Time: 08:22 Bed 16 Private MD: Diagnosis: Other acute conjunctivitis-LEFT, BACTERIAL;Periorbital cellulitis-MILD Presentation: 09/06 09:01 Chief complaint: Left eye pain, redness, and tearing upon waking today. Coronavirus hb screen: At this time, the client does not indicate any symptoms associated with coronavirus-19. Ebola Screen: No symptoms or risks identified at this time. Initial Sepsis Screen: Does the patient meet any 2 criteria? No. Patient's initial sepsis screen is negative. Does the patient have a suspected source of infection? No. Patient's initial sepsis screen is negative. Risk Assessment: Do you want to hurt yourself or someone else? Patient reports no desire to harm self or others. Onset of symptoms was September 06, 2024. 09:01 Method Of Arrival: Ambulatory hb 09:01 Acuity: LUCAS 4 hb Historical: - Allergies: 09:03 No Known Allergies; hb - Home Meds: 09:03 None [Active]; hb - PMHx: 09:03 None; hb - PSHx: 09:03 None; hb - Immunization history:: Adult Immunizations up to date. - Infectious Disease History:: Denies. - Social history:: Smoking status: Patient denies any tobacco usage or history of. Screenin:30 [facility] ED Fall Risk Assessment (Adult) History of falling in the last 3 months, db including since admission No falls in past 3 months (0 pts) Confusion or Disorientation No (0 pts) Intoxicated or Sedated No (0 pts) Impaired Gait No (0 pts) Mobility Assist Device Used No (0 pt) Altered Elimination No (0 pt) Score/Fall Risk Level 0 - 2 = Low Risk Oriented to surroundings, Maintained a safe environment. Abuse screen: Denies threats or abuse. Denies injuries from another. Nutritional screening: No deficits noted. Tuberculosis screening: No symptoms or risk factors identified. Assessment: 09:29 Reassessment: Patient appears in no apparent distress at this time. Patient and/or db family updated on plan of care and expected duration. Pain level reassessed. Patient is alert, oriented x 3, equal unlabored respirations, skin warm/dry/pink. General: Appears in no apparent distress. comfortable, Behavior is calm, cooperative. Pain: Complains of pain in left eye. Neuro: Level of Consciousness is awake, alert, obeys commands, Oriented to person, place, time, situation. Respiratory: Airway is patent Respiratory effort is even, unlabored, Respiratory pattern is regular, symmetrical. Vital Signs: 09:02 BP 127 / 95; Pulse 74; Resp 16; Temp 98.1; Pulse Ox 100% ; Weight 58.97 kg; Height 5 hb ft. 4 in. ; Pain 8/10; 09:45 BP 126 / 82; Pulse 74; Resp 16; Pulse Ox 100% on R/A; db 09:02 Body Mass Index 22.31 (58.97 kg, 162.56 cm) hb 09:02 Pain Scale: Adult hb ED Course: 08:29 Patient arrived in ED. cj3 08:35 Tobin Azevedo MD is Attending Physician. gabrielle 08:50 Doretha Rodriguez RN is Primary Nurse. db 09:03 Triage completed. hb 09:03 Arm band placed on. hb 09:10 Assist provider with eye exam of left eye. using Performed by Tobin Azevedo MD Patient db tolerated well. 09:57 Patient has correct armband on for positive identification. Bed in low position. Call db light in reach. Side rails up X 1. Pillow given. 09:58 Adiel Nesbitt MD is Referral Physician. gabrielle 10:14 Provided Education on: DISCHARGE AND FOLLOWUP. db 10:14 Patient did not have IV access during this emergency room visit. db Administered Medications: 09:20 Drug: Tetracaine Ophthalmic Drops 0.5 % 1 drops Ophthalmic once Route: Ophthalmic; db Site: left eye; 10:12 Follow up: Response: No adverse reaction db 09:20 Drug: Ibuprofen PO 600 mg PO once Route: PO; db 10:12 Follow up: Response: No adverse reaction db 09:29 Drug: ERYTHromycin Ophthalmic Ointment 1 application Ophthalmic once Route: Ophthalmic; db Site: left eye; 10:12 Follow up: Response: No adverse reaction db 09:42 Drug: Cephalexin PO 500 mg PO once Route: PO; db 10:12 Follow up: Response: No adverse reaction db 10:05 Drug: [place] PO 10 mg-325 mg 1 tabs PO once Route: PO; db 10:13 Follow up: Response: No adverse reaction db Medication: 10:14 VIS not applicable for this client. db Outcome: 09:58 Discharge ordered by . gabrielle 10:14 Discharged to home ambulatory, db 10:14 Condition: stable 10:14 Discharge instructions given to patient, family, Instructed on discharge instructions, follow up and referral plans. Prescriptions given X 3, 10:16 Patient left the ED. db Signatures: Tobin Azevedo MD MD cha Baxter, Heather, RN RN Doretha Alcantara, RN RN db Deborah Rosales cj3
[2024-09-06] MEDS ORDERED: HYDROCODONE/APAP 10/325 TAB ONE (10:00)
[2024-09-06 12:28] VITALS: TEMP 98.1; O2SAT 100
[2024-09-06 12:30] VITALS: BP 126/82
== END 2024-09-06 10:16 | disposition home or self-care (01) ==
LOC: ER 08:22
DX: H10.32 Unspecified acute conjunctivitis, left eye (principal); L03.213 Periorbital cellulitis
CPT/HCPCS: 99283

== ENCOUNTER 2024-09-07 11:15 | Emergency (ER) | payer SELFPAY ==
--- OUTSIDE RECORDS SUMMARY | 2024-09-07 11:18 | XMS REPORT | Continuity of Care Document ---
Author Name Unknown Address [address] [place] [address] [place] [address] [address] [place] [address] Care Team Providers Care Cutter Down Name Role Phone Unavailable Unavailable Unavailable
--- NOTE | 2024-09-07 11:51 | EDPHYS ---
Physician Documentation [facility] Name: Isis Mendez Age: 34 yrs Sex: Female : 1990 Arrival Date: 09/07/2024 Time: 11:15 Bed 11 Private MD: ED Physician Abiodun Khan HPI: 09/07 12:48 This 34 yrs old Black Female presents to ER via Ambulatory with complaints of Eye rt Problem. 12:48 Patient presents to the ED with continued pain to the left eye. The patient was seen rt yesterday, was prescribed antibiotics, told to follow-up with ophthalmology, is not filled her antibiotics, did not get in with the waist cutter. Denies other acute complaints at this time, symptoms are moderate in severity, no other aggravating or elevating factors.. 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 - Infectious Disease History:: Denies. - Social history:: Smoking status: Reported history of juuling and/or vaping. - Family history:: not pertinent. ROS: 12:48 Constitutional: Negative for fever, chills, and weight loss, Skin: Negative for injury, rt rash, and discoloration, Neuro: Negative for headache, weakness, numbness, tingling, and seizure, 12:48 Eyes: Positive for pain, redness, Exam: 12:48 Constitutional: This is a well developed, well nourished patient who is awake, alert, rt and in no acute distress. Head/Face: Normocephalic, atraumatic. Skin: Warm, dry with normal turgor. Normal color with no rashes, no lesions, and no evidence of cellulitis. MS/ Extremity: Pulses equal, no cyanosis. Neurovascular intact. Full, normal range of motion. Neuro: Awake and alert, GCS 15, oriented to person, place, time, and situation. Cranial nerves II-XII grossly intact. Motor strength 5/5 in all extremities. Sensory grossly intact. Cerebellar exam normal. Normal gait. 12:48 Eyes: Extraocular muscles intact, pupils equally round and reactive, conjunctival injection to the left eye, right eye is clear. Vital Signs: 11:23 BP 123 / 74; Pulse 88; Resp 17; Temp 97.8; Pulse Ox 100% on R/A; Weight 59.87 kg; bc6 MDM: 11:47 Medical Screening Exam initiated rt 12:48 Differential diagnosis: Data reviewed: vital signs, nurses notes. I considered the rt following discharge prescriptions or medication management in the emergency department Medications were administered in the Emergency Department. See MAR. Test considered but Not performed: Other Details Fluorescein staining unremarkable yesterday, will not repeat fluorescein stain. Counseling: I had a detailed discussion with the patient and/or guardian regarding the historical points, exam findings, and any diagnostic results supporting the discharge/admit diagnosis, the need for outpatient follow up. Administered Medications: 12:06 Drug: Tetracaine Ophthalmic Drops 0.5 % 2 drops Ophthalmic once Route: Ophthalmic; Site: left eye; 12:06 Follow up: Response: Medication administered at discharge. Disposition Summary: 09/07/24 11:50 Discharge Ordered Notes: Location: Home rt Problem: an ongoing problem rt Symptoms: are unchanged rt Condition: Stable rt Diagnosis - Other conjunctivitis rt Followup: rt - With: Adiel Nesbitt MD - When: 1 - 2 days - Reason: Discharge Instructions: - Discharge Summary Sheet rt - Viral Conjunctivitis, Adult rt Forms: - Medication Reconciliation Form rt - Antibiotic Education rt - Prescription Opioid Use rt - Patient Portal Instructions rt - Leadership Thank You Letter rt Signatures: Destiney Beckford RN KAYDEN Abiodun Khan MD MD rt Erin Deras RN RN tx1
--- NOTE | 2024-09-07 11:51 | ER ---
Nurse's Notes [facility] Name: Isis Mendez Age: 34 yrs Sex: Female : 1990 Arrival Date: 09/07/2024 Time: 11:15 Bed 11 Private MD: Diagnosis: Other conjunctivitis Presentation: 09/07 11:27 Chief complaint: Patient states: feels like she has something in her left eye since day me1 before yesterday. Pain is worse today than is has been. Left eye is red and watering. Pain level 9/10. Coronavirus screen: Vaccine status: Patient reports receiving the 2nd dose of the covid vaccine. Ebola Screen: No symptoms or risks identified at this time. Initial Sepsis Screen: Does the patient meet any 2 criteria? No. Patient's initial sepsis screen is negative. Does the patient have a suspected source of infection? No. Patient's initial sepsis screen is negative. Risk Assessment: Do you want to hurt yourself or someone else? Patient reports no desire to harm self or others. Onset of symptoms was September 05, 2024. 11:27 Method Of Arrival: Ambulatory ga1 11:27 Acuity: LUCAS 4 me1 Triage Assessment: 11:29 General: Appears uncomfortable, slender, well groomed, well developed, Behavior is me1 calm, cooperative, appropriate for age. Pain: Complains of pain in left eye Pain does not radiate. Pain currently is 9 out of 10 on a pain scale. Quality of pain is described as sharp, Pain began 2-3 days ago. Is continuous. EENT: Eyes are tearing on left eye red. Reports pain in left eye since 09/05/24. Neuro: Level of Consciousness is awake, alert, obeys commands, Oriented to person, place, time, situation, Appropriate for age. Cardiovascular: Patient's skin is warm and dry. Respiratory: Airway is patent Respiratory effort is even, unlabored, Respiratory pattern is regular, symmetrical. GI: No signs and/or symptoms were reported involving the gastrointestinal system. : No signs and/or symptoms were reported regarding the genitourinary system. Derm: Skin is intact, is healthy with good turgor, Skin is pink, warm \T\ dry. Musculoskeletal: No signs and/or symptoms reported regarding the musculoskeletal system. 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 - Infectious Disease History:: Denies. - Social history:: Smoking status: Reported history of juuling and/or vaping. - Family history:: not pertinent. Screenin:55 [facility] ED Fall Risk Assessment (Adult) History of falling in the last 3 months, hb including since admission No falls in past 3 months (0 pts) Confusion or Disorientation No (0 pts) Intoxicated or Sedated No (0 pts) Impaired Gait No (0 pts) Mobility Assist Device Used No (0 pt) Altered Elimination No (0 pt) Score/Fall Risk Level 0 - 2 = Low Risk Oriented to surroundings, Maintained a safe environment, Educated pt \T\ family on fall prevention, incl call for assistance when getting out of bed. Abuse screen: Denies threats or abuse. Denies injuries from another. Nutritional screening: No deficits noted. Tuberculosis screening: No symptoms or risk factors identified. Assessment: 11:55 General: Appears in no apparent distress. Behavior is calm, cooperative. Pain: hb Complains of pain in left eye. Neuro: Level of Consciousness is awake, alert, obeys commands, Oriented to person, place, time, situation. Cardiovascular: Patient's skin is warm and dry. Respiratory: Respiratory effort is even, unlabored, Respiratory pattern is regular, symmetrical. GI: No signs and/or symptoms were reported involving the gastrointestinal system. : No signs and/or symptoms were reported regarding the genitourinary system. EENT: left sclera reddened, eye tearing. Reports left eye pain. Derm: Skin is pink, warm \T\ dry. Musculoskeletal: No signs and/or symptoms reported regarding the musculoskeletal system. Vital Signs: 11:23 BP 123 / 74; Pulse 88; Resp 17; Temp 97.8; Pulse Ox 100% on R/A; Weight 59.87 kg; bc6 ED Course: 11:16 Patient arrived in ED. mr 11:28 Triage completed. me1 11:28 Arm band placed on Patient placed in waiting room. me1 11:34 Abiodun Khan MD is Attending Physician. rt 11:50 Adiel Nesbitt MD is Referral Physician. rt 11:55 Patient has correct armband on for positive identification. Provided Education on: hb medications, follow up. 12:10 No provider procedures requiring assistance completed. Patient did not have IV access hb during this emergency room visit. Administered Medications: 12:06 Drug: Tetracaine Ophthalmic Drops 0.5 % 2 drops Ophthalmic once Route: Ophthalmic; hb Site: left eye; 12:06 Follow up: Response: Medication administered at discharge. hb Medication: 11:55 VIS not applicable for this client. hb Outcome: 11:50 Discharge ordered by MD. rt 12:06 Discharged to home ambulatory, with family, hb 12:06 Condition: stable 12:06 Discharge instructions given to patient, family, Instructed on discharge instructions, follow up and referral plans. medication usage, Demonstrated understanding of instructions, follow-up care, medications, 12:10 Patient left the ED. Signatures: Ramona Cyr, Reg Reg Destiney Beckford, RN RN Abiodun Khan MD MD rt Janiya Blood 6 Erin Deras, KAYDEN RN me1
[2024-09-07] MEDS ORDERED: TETRACAINE HCL 0.5% 4ML OPTH ONE (12:01)
[2024-09-07 15:48] VITALS: BP 123/74; TEMP 97.8; O2SAT 100
== END 2024-09-07 12:10 | disposition home or self-care (01) ==
LOC: ER 11:15
DX: H10.89 Other conjunctivitis (principal)